=== PATIENT | female | born 1960 | race Caucasian/White ===

== ENCOUNTER 2023-04-24 08:51 | Outpatient (OUT) | payer SELFPAY | END 2023-04-24 08:52 | disposition home or self-care (01) | LOC: LAB 08:54 | PROVIDERS: PCP Family Medicine; Visit Provider Family Medicine | DX: E55.9 Vitamin D deficiency, unspecified (principal) | CPT/HCPCS: 36415; 82306 ==

== ENCOUNTER 2024-04-24 10:56 | Emergency (ER) | payer OTHER, SELFPAY ==
[2024-04-24 11:05] VITALS: BP 143/89; PULSE 96; TEMP 36.6; O2SAT 100; BMI 26.6
--- NOTE | 2024-04-24 11:15 | XR_ITS ---
[address] [address] Patient Name: DAVID MARLEY MRN: [id number] date: 1960 Sex: F Assigned Patient Location: ER Current Patient Location: Accession/Order Number: [id number] Exam Date: 04/24/2024 12:24 Report Date: 04/24/2024 13:55 At the request of: SHEFALI ROMAN Procedure: XR knee RT 4V EXAM: XR knee RT 4V INDICATION: fall. COMPARISON: None. TECHNIQUE: Right knee, 4 views FINDINGS: No acute fracture or dislocation. Mild medial compartment and patellofemoral joint space narrowing with osteophyte formation. No joint effusion. Unremarkable soft tissues. XR/XR knee RT 4V IMPRESSION: 1. No acute osseous abnormality. 2. Mild right knee osteoarthrosis. Electronically authenticated by: ALLAN LOREDO Date: 04/24/2024 13:55
--- NOTE | 2024-04-24 13:54 | ED_ITS ---
HPI HPI - General Adult General Chief complaint: Fall Stated complaint: FALL/[facility] Time Seen by Provider: 04/24/24 11:15 Source: patient Mode of arrival: walk-in Limitations: no limitations History of Present Illness HPI narrative: The patient is coming to the ER 1 week after her initial injury, she had a fall while she was walking and tripped forward. This injury happened, she mentioned that she just felt like her feet got stuck to the floor and she fell forward in her knee and her head. At that time there was no loss of consciousness and she had a contusion to the right side of her head. She also had a contusion to both knees and her right knee over the last few days has been getting her more pain and did not get better. The pain is mostly whenever she is standing her feet and walking and she mentioned that her job requires her a lot of standing up Related Data Home Medications ?Medication ?Instructions ?Recorded ?Confirmed hydrocodone 5 mg-acetaminophen 325 tab 04/24/24 mg tablet lisinopril 10 mg tablet mg 04/24/24 lisinopril 5 mg tablet mg 04/24/24 lorazepam 0.5 mg tablet mg 04/24/24 Previous Rx's ?Medication ?Instructions ?Recorded ibuprofen 600 mg tablet 600 mg PO Q8H PRN pain #20 tabs 04/24/24 Allergies Allergy/AdvReac Type Severity Reaction Status Date / Time fluconazole (From Diflucan) Allergy Hives Verified 04/24/24 11:05 sulfamethoxazole (From Allergy Hives Verified 04/24/24 11:05 Bactrim) trimethoprim (From Bactrim) Allergy Hives Verified 04/24/24 11:05 Opioid HPI Opioid Management Most Recent Opioid Data: No Data to Display Review of Systems ROS Status of ROS 10 or more systems reviewed and unremark able except as noted in history and below PFSH PFSH Social History Little interest or pleasure in doing things: not at all Feeling down, depressed, or hopeless: not at all Exam Narrative Exam Narrative: Nurses notes and vital signs reviewed and patient is not hypoxic. General: Well-appearing and in no apparent distress. Skin: Warm, dry, no pallor noted. No rash. Head: Normocephalic, there is a old bruise just above the right eyebrow and the showing up down to the upper eyelid Neck: Supple, non-tender. Eye: Pupils are equal, round and EOMI. No scleral icterus. Ears, Nose, Mouth, and Throat: TM are clear, no nasal mucosal hypertrophy. Oral mucosa is moist, no posterior oropharynx erythema, uvula is mid-line Cardiovascular: Regular Rate and Rhythm without murmur, gallop or rub. Respiratory: No accessory muscle use or respiratory distress. Lungs are clear to auscultation, no wheezing, rales or rhonchi Chest Wall: no tenderness Back: No midline thoracic or lumbar vertebral tenderness. No CVA tenderness Musculoskeletal: normal ROM, no calf or popliteal tenderness, the patient have a anterior drawer sign is positive on the right knee and the patient have a old contusion with tenderness on palpation of the infrapatellar tendon, the contusion seems healing as it is greenish Left knee examination was benign GI: Abdomen is soft, non-distended. Normal bowel sounds. No masses appreciated. No tenderness to palpation. No rebound, guarding, or rigidity noted. Neurological: A&O x4. No cranial nerve dysfunction observed. Moves all extremities. Sensation intact. Psychiatric: Cooperative and interactive. Normal mood and affect. Constitutional Vital Signs, click to edit/add: Last Vital Signs Temp 97.8 F 04/24/24 11:05 Pulse 96 H 04/24/24 11:05 Resp 18 04/24/24 11:05 BP 143/89 H 04/24/24 11:05 Pulse Ox 100 04/24/24 11:05 O2 Del Method Room Air 04/24/24 11:05 Course Vital Signs Vital signs: Vital Signs Temperature 97.8 F 04/24/24 11:05 Pulse Rate 96 H 04/24/24 11:05 Respiratory Rate 18 04/24/24 11:05 Blood Pressure 143/89 H 04/24/24 11:05 Pulse Oximetry 100 04/24/24 11:05 Oxygen Delivery Method Room Air 04/24/24 11:05 Temperature 97.8 F 04/24/24 11:05 Pulse Rate 96 H 04/24/24 11:05 Respiratory Rate 18 04/24/24 11:05 Blood Pressure 143/89 H 04/24/24 11:05 Pulse Oximetry 100 04/24/24 11:05 Oxygen Delivery Method Room Air 04/24/24 11:05 Medical Decision Making MDM Narrative Medical decision making narrative: The patient x-ray of the right knee showed no acute pathology The patient presented with possible ligament injury sprain that clinical exam showed possible infrapatellar tendon injury as well The patient was placed in a knee immobilizer and she was instructed to rest at least for 2 days elevating her leg Patient referred to the occupational health since this is a work injury with recommendation for orthopedic evaluation in case the patient continues to have pain for an MRI Discharge Plan Discharge Chief Complaint: Fall Clinical Impression: Injury of knee, ligament Qualifiers: Encounter type: initial encounter Laterality: right Qualified Code(s): S89.91XA - Unspecified injury of right lower leg, initial encounter Contusion of knee Qualifiers: Encounter type: initial encounter Laterality: right Qualified Code(s): S80.01XA - Contusion of right knee, initial encounter Patient Disposition: Home, Self-Care Time of Disposition Decision: 11:52 Condition: Good Prescriptions / Home Meds: New ibuprofen 600 mg tablet 600 mg PO Q8H PRN (Reason: pain) Qty: 20 0RF No Action hydrocodone-acetaminophen 5-325 mg tablet lorazepam 0.5 mg tablet lisinopril 10 mg tablet lisinopril 5 mg tablet Print Language: Kinyarwanda Instructions: Contusion in Adults (ED) Referrals: [facility] [Outside] - As soon as possible Physician,Non-Staff, MD [Primary Care Provider] - 1 week Discharge Date/Time: 04/24/24 14:05
== END 2024-04-24 14:05 | disposition home or self-care (01) ==
PROVIDERS: Emergency Provider Emergency Medicine
DX: S80.01XA Contusion of right knee, initial encounter (principal); S89.91XA Unspecified injury of right lower leg, initial encounter; W01.198A Fall on same level from slipping, tripping and stumbling with subsequent striking against other object, initial encounter
CPT/HCPCS: 73564; 99283

== ENCOUNTER 2025-06-08 07:35 | Emergency (ER) | payer SELFPAY ==
--- OUTSIDE RECORDS SUMMARY | 2024-05-03 05:45 | XMS_ITS ---
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 Name Role Phone Chris Singleton Primary Care Provider [phone] REASON FOR VISIT HTN Encounters Encounter Location Date Provider Diagnosis [facility] [address] [place] [address] 05/03/2024 Chris Singleton Plan Of Treatment Next Appt Details Provider Name:Chris mercedes, 06/13/2025 08:30:00 AM, [address] [place], [address], Progress Notes * BERNADETTE MARLEYB:1960 (64 yo F)Acc No.[id number]:05/03/2024 Progress Notes Patient: DAVID WHITE :?FARRAH SalmeronOB:1960???Age:63 Y???Sex: FemaleDate:05/03/2024hone:[phone]:[address] [place], [place] Subjective: * Chief Complaints: * H TN * Electronic signature of Chris Singleton DO, [id number] on 06/08/2025 at 08:05 AM ESTSign off status: Pending * Provider: Stephenie Singleton DO Date: Generated for Printing/Faxing/eTransmitting on:?06/08/2025 08:05 AM EST
--- OUTSIDE RECORDS SUMMARY | 2024-07-27 06:45 | XMS_ITS ---
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[employer] Workers Name Role Phone Chris Singleton Primary Care Provider REASON FOR VISIT CHECKUP Encounters Encounter Location Date Provider Diagnosis [facility] [address] [place] [address] 07/27/2024 Chris Singleton Plan Of Treatment Next Appt Details Provider Name:Chris mercedes, 06/13/2025 08:30:00 AM, [address] [place], [address], Progress Notes * BERNADETTE MARLEYB:1960 (64 yo F)Acc No.[id number]:07/27/2024 Progress Notes Patient: DAVID WHITE :?FARRAH SalmeronOB:1960???Age:63 Y???Sex: FemaleDate:07/27/2024Phone:[phone]:[address] [place], [place] Subjective: * Chief Complaints: * C HECKUP * Electronic signature of Chris Singleton DO, [id number] on 06/08/2025 at 08:05 AM ESTSign off status: Pending * Provider: Stephenie Singleton DO Date: 0 07/27/2024 Generated for Printing/Faxing/eTransmitting on:?06/08/2025 08:05 AM EST
--- OUTSIDE RECORDS SUMMARY | 2024-10-18 05:00 | XMS_ITS ---
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 Name Role Phone Chris Singleton Primary Care Provider [phone] REASON FOR VISIT HTN Encounters Encounter Location Date Provider Diagnosis [facility] [address] [place] [address] 10/18/2024 Chris Singleton Plan Of Treatment Next Appt Details Provider Name:Chris mercedes, 06/13/2025 08:30:00 AM, [address] [place], [address], Progress Notes * KVNG MARLEYTHAOB:1960 (64 yo F)Acc No.[id number]:10/18/2024 Progress Notes Patient: DAVID WHITE :?FARRAH SalmeronOB:1960???Age:64 Y???Sex: FemaleDate:10/18/2024Phone:[phone]:[address] [place], [place] Subjective: * Chief Complaints: * H TN * Electronic signature of Chris Singleton DO, [id number] on 06/08/2025 at 08:05 AM ESTSign off status: Pending * Provider: Stephenie Singleton DO Date: 0 10/18/2024 Generated for Printing/Faxing/eTransmitting on:?06/08/2025 08:05 AM EST
--- OUTSIDE RECORDS SUMMARY | 2025-02-16 09:15 | XMS_ITS ---
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 Name Role Phone Chris Singleton Primary Care Provider REASON FOR VISIT 3MONTH F/U HTN Encounters Encounter Location Date Provider Diagnosis [facility] [address] [place] [address] 02/16/2025 Chris Singleton Plan Of Treatment Next Appt Details Provider Name:Chris mercedes, 06/13/2025 08:30:00 AM, [address] [place], [address], Progress Notes * KEOKVNG TOLLIVERTHAOB:1960 (64 yo F)Acc No.[id number]:02/16/2025 Progress Notes Patient: DAVID WHITE :?FARRAH SalmeronOB:1960???Age:64 Y???Sex: FemaleDate:02/16/2025Phone:[phone]:[address] [facility] Subjective: * Chief Complaints: * 3 MONTH F/U HTN * Electronic signature of Chris Singleton DO, [id number] on 06/08/2025 at 08:05 AM ESTSign off status: Pending * Provider: Stephenie Singleton DO Date: 0 02/16/2025 Generated for Printing/Faxing/eTransmitting on:?06/08/2025 08:05 AM EST
[2025-06-08 07:41] VITALS: PULSE 74; TEMP 36.7; O2SAT 99; BMI 26.6
--- NOTE | 2025-06-08 07:49 | ED.GENADUL1 ---
HPI HPI - General Adult General Chief complaint: Upper Respiratory Infection Stated complaint: exposure to covid - cold like symptoms Time Seen by Provider: 06/08/25 07:46 Source: patient and family Mode of arrival: walk-in Limitations: no limitations History of Present Illness HPI narrative: 64-year-old female presents for a COVID test. She has had cold symptoms for the past 2 days, congestion and runny nose and slight cough. Somebody at work had COVID. She took a home test and it may have been weakly positive but she is not sure. No vomiting or diarrhea. Related Data Home Medications ?Medication ?Instructions ?Recorded ?Confirmed hydrocodone 5 mg-acetaminophen 325 1 tab PO Q8H 04/24/24 06/08/25 mg tablet lorazepam 0.5 mg tablet 0.5 mg PO Q8H 04/24/24 06/08/25 amlodipine 5 mg tablet 5 mg PO DAILY 06/08/25 06/08/25 Allergies Allergy/AdvReac Type Severity Reaction Status Date / Time fluconazole (From Diflucan) Allergy Hives Verified 06/08/25 07:41 sulfamethoxazole (From Allergy Hives Verified 06/08/25 07:41 Bactrim) trimethoprim (From Bactrim) Allergy Hives Verified 06/08/25 07:41 Review of Systems ROS Narrative A ten point review of systems is negative except as noted above. PFSH PFSH Social History Little interest or pleasure in doing things: not at all Feeling down, depressed, or hopeless: not at all Exam Narrative Exam Narrative: Nurses note and vital signs reviewed General:The patient appears well and in no apparent distress.Patient is resting comfortably on cart. Skin:Warm, dry, no pallor noted.There is no rash noted. Head:Normocephalic, atraumatic Eye: Normal conjunctiva, no drainage Ears, Nose, Mouth, and Throat: oral mucosa is moist. Nares patent. Cardiovascular:Regular Rate and Rhythm Respiratory:Patient is in no distress, no accessory muscle use, lungs are clear to auscultation, no wheezing, rales or rhonchi Back:non-tender GI: Soft and nontender Musculoskeletal: No joint swelling Neurological:A&O, normal speech Psychiatric:Cooperative Constitutional Vital Signs, click to edit/add: Last Vital Signs Temp 98.1 F 06/08/25 07:41 Pulse 74 06/08/25 07:41 Resp 16 06/08/25 07:41 BP 140/99 H 06/08/25 07:50 Pulse Ox 99 06/08/25 07:41 O2 Del Method Room Air 06/08/25 07:41 Course Vital Signs Vital signs: Vital Signs Temperature 98.1 F 06/08/25 07:41 Pulse Rate 74 06/08/25 07:41 Respiratory Rate 16 06/08/25 07:41 Pulse Oximetry 99 06/08/25 07:41 Oxygen Delivery Method Room Air 06/08/25 07:41 Temperature 98.1 F 06/08/25 07:41 Pulse Rate 74 06/08/25 07:41 Respiratory Rate 16 06/08/25 07:41 Blood Pressure 140/99 H 06/08/25 07:50 Pulse Oximetry 99 06/08/25 07:41 Oxygen Delivery Method Room Air 06/08/25 07:41 Medical Decision Making MDM Narrative Medical decision making narrative: COVID and influenza test are negative. She was given a work note for today. Treatment diagnosis and follow-up were discussed with the patient. Differential Diagnosis Differential Diagnosis: Viral URI, COVID, influenza Lab Data Lab results reviewed: Yes I reviewed the patient's lab results Labs: Lab Results 06/08/25 Range/Units 07:40 Influenza Type A Ag Negative Influenza Type B Ag Negative SARS-CoV-2 Ag (CV2AG) Negative (NEGATIVE) Discharge Plan Discharge Chief Complaint: Upper Respiratory Infection Clinical Impression: Upper respiratory infection Patient Disposition: Home, Self-Care Time of Disposition Decision: 08:19 Condition: Good Mode of Transportation: Private Vehicle Prescriptions / Home Meds: No Action hydrocodone-acetaminophen 5-325 mg tablet 1 tab PO Q8H lorazepam 0.5 mg tablet 0.5 mg PO Q8H amlodipine 5 mg tablet 5 mg PO DAILY Print Language: Senegalese Instructions: Upper Respiratory Infection (ED) Referrals: Physician,Non-Staff, MD [Physician] - 1 week
[2025-06-08 07:50] VITALS: BP 140/99
--- OUTSIDE RECORDS SUMMARY | 2025-06-08 08:06 | XMS_ITS | Patient Health Record ---
Author Organization [facility] Address [address] [place] [place], [place] [address] Support Name Relationship Address Phone Skinny Avelar Emergency Contact [address] [place] [address] Dana Avelar Guarantor Unknown [phone] Reason For Referral No Information Social History Social History Additional DetailsCategorySocial InfoOptionsDetailsMigrated Social History Migrated Social History Caffeine Use, COMMENTS: 2 diet pops daily, ProblemStatus: Active, , Culture/Language, AttributeTitle: Language barrier, COMMENTS: NO, ProblemStatus: Active, , Current Control Method, AttributeTitle: Oral contraceptives, ProblemStatus: Active, , Current tobacco use, AttributeTitle: Never smoker, ProblemStatus: Active, , Current Work/Study Status, AttributeTitle: Part-time, ProblemStatus: Active, , Currently sexually active, ProblemStatus: Active, , Living Situation, AttributeTitle: Lives with spouse, ProblemStatus: Active, , 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, 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 may need to give sleeping pills . 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 one sone not w her. [place] lived [place]. noo cp n v d c .sob. mild sob on exertion. fatigue and tired most of the time. h/o anemia, Problemmigraine (disorder) (68928162)Migraines (G43.909)Activeconfirmed Comment:migraines worse with menses pt states has tried meds in past, didnt work, using excedrin since ran out of lorcet, doesnt help mri from outside records negative pt given lorcet, pt to use sparingly,, ProblemGynecological examination normal (685502197562086)Well woman exam with routine gynecological exam (Z01.419)Activeconfirmed Comment:no cervical procedures done, last pap 2013 negative, pt currently has no insurance, [facility], now eligable for pap encouraged self breast exams annual mammograms - 09/2014 negative, ProblemGynecological examination normal ([id number])Encounter for routine gynecological examination (Z01.419)ActiveconfirmedProblemEndometrium thickened (869764434)Thickened endometrium (R93.89)Activeconfirmed Comment:pt has history of thickened endometrium, menometrorrhagia, has had multiple endometrial biopsies and hysteroscopy D+C's, pathology all negative. last path 2008 pt currently taking norethindrone 5 mg, 2 tabs daily to control bleeding for 21 days, then off for 7 days to have menses discussed risks of heart attack, blood clot, stroke with high dose, pt aware, has been on years desires to continue. Pt currently declines provera, depo, iud or surgical management as has no insurance. pt states had pelvic ultrasound recently, will obtain records, - in outside records no recent US seen or endo bx seen, previous endo bx neg. Pt to be scheduled for US, will not provide with meds until US obtained - normal endometrial thickness, 5 mm. Pt is to stop norethindrone to see if still needs it, ProblemAdenomyosis of uterus (disorder) (260900576)Adenomyosis (N80.0)Active confirmed Comment:pt has been on narcotics, discussed need to use sparingly, risks of addiction, pt understands, ran out of lorecet, has been using excedrin, which doesnt help pt lost insurance before could have surgical management - pt now has bccp,, Plan Of Treatment No Information Insurance Providers Payer Name Payer Address Payer Phone Subscriber Number Group Number Insured Name Patient Relationship to Insured Coverage Start Date Coverage End Date D20 Resp Sliding Fee Scale [address] [place], [place] [address] Abbi Avelarf - patient is the amtenyc48/[id number]//[facility] Program [address] [place] [phone], Rhonda Self - patient is the [id number]/07/ Medical (General) History Surgical History Surgery Date(Month/Year) Endometrial biopsy, COMMENTS : Negative. For thickened endometrium, ProblemStatus: Active, Fistula Repair , ProblemStatus: Active,Hysteroscopy, COMMENTS: For thickened endometrium, ProblemStatus: Active,D&C, ProblemStatus: Active,Breast Biopsy - Right, COMMENTS: Negative, ProblemStatus: Active,1999-07-14
--- OUTSIDE RECORDS SUMMARY | 2025-06-08 08:06 | XMS_ITS | Clinical Summary ---
Author Organization [facility] Address [address] [place] [address] Care Team Providers Care Offc Spec Name Role Phone Unavailable Primary Care Provider Unavailabl e Social History Tobacco UseTypesPacks/DayYears UsedDateSmoking Tobacco: Never Assessed CommentsUnknownSex and Gender InformationValueDate RecordedSex Assigned at Not on fileLegal KoiUgflgb75/25/2024 11:02 AM EDTGender IdentityNot on file Sexual OrientationNot on file Plan of Treatment Not on file
--- OUTSIDE RECORDS SUMMARY | 2025-06-08 08:06 | XMS_ITS | CCD ---
Author Organization [facility] Care Team Providers Care Wallpaper Inspector And Shipper Name Role Phone Eugene Joshua Admitting Unavailable Eugene Joshua Attending Unavailable Eugene Joshua Referring Unavailable VICKI ROUSSEAU~[phone] UNKNOWN Primary Care Unavailable Vicki Rousseau Unavailable REQUEST, NONE LISTED Admitting Unavaila ble REQUEST, NONE LISTED Attending Unavaila ble ONELIA, DR VICKI Herbert Primary Care Unavailable REQUEST, NONE LISTED Consulting Unavaila ble REQUEST, NONE LISTED Admitting Unavaila ble REQUEST, NONE LISTED Attending Unavaila ble ONELIA, DR VICKI Herbert Primary Care Unavailable REQUEST, NONE LISTED Consulting Unavaila ble Zina Soto Unavailable DO Chris Singleton Attending Provider Chris Singleton Attending Unavailable Chris Singleton Admitting Unavailable Allergies Allergy ClassificationReported Allergen(s)Allergy TypeDate of OnsetReaction(s) Facility (20 sources)Fluconazole; Translations: [fluconazole]Drug Dbkjvnj88-49-3930 Unknown, [facility] Repository (3 sources)Sulfamethoxazole; Translations: [sulfamethoxazole]Drug Allergy 47[place]58[place]05[place] Repository (1 source)Sulfonamides (Antibiotic); Translations: [sulfa drugs]Propensity to adverse reactions (disorder)[facility] Repository (20 sources)Sulfamethoxazole / TrimethoprimDrug AllergyUnkSolvvy Inc[employer] Other (1 source)FluconazoleDrug [facility]ergySum[facility] (1 source)Sulfamethoxazole / TrimethoprimDrug AllergySumma Health [facility] Repository (12 sources)Amoxicillin / ClavulanateDrug Iwdbczu55-84-0406NomyoxyMtdcuPixelle Other (10 sources)patient allergy list reviewed by nurse or physiciaPropensity to adverse iomklljrt69-58-4741Jycffiv:DoneNouniversity of missouri health care [employer] Other (10 sources)Allergies ReconciledPropensity to adverse reactionsUnkSaint Joseph Hospital of Kirkwood [employer] Other (2 sources)Amoxicillin; Translations: [amoxicillin]Drug Ezraulm21-20-6502BjxkqT[facility] (2 sources)Clavulanate; Translations: [clavulanic acid]Drug Qazflwd74-85-4103 [facility] (2 sources)Trimethoprim; Translations: [trimethoprim]Drug Yldffby82-48-8216TfcxbTwin City Hospital Medications Current Medications MedicationDrug Class(es)DatesSig (Normalized)Sig (Original)LORazepam 0.5 mg oral tablet (20 sources)BenzodiazepineStart: 09-16-2023 End: 99-72-3194tlec 1 tablet by mouth three times daily as neededLorazepam Active 0.5 MG PO Three times daily October 28, 2023 1:44pm FreeTextSi tab Orally tid prn; Note: Source Status: Taking; Refills: 0; Provider: Onelia Cohen EStart: 24-29-4431obbc 1 tablet by mouth three times daily as needed LORazepam 0.5 MG 1 tab Orally tid prn for 30 days Jun, ActiveStart: 92-49-5243mene 1 tablet by mouth three times daily as neededLORazepam 0.5 MG 1 tab Orally tid prn for 30 days Oct, Activetake 1 tablet by mouth every twenty-four hoursLORazepam 0.5 MG 1 tablet at bedtime as needed Orally Once a day ActivemethylPREDNISolone 4 mg oral tablet (2 sources)CorticosteroidStart: 97-31-2656vrfrbfYWJIORKoixwh 4 MG as directed Orally daily for 6 days Jun, Activenorethindrone acetate 5 mg oral tablet (20 sources)take 1 tablet by mouth twice dailyNorethindrone Acetate 5 MG take 1 tablet by mouth twice a day for 30 Activetake 1 tablet by mouth every twenty- four hoursondansetron 4 mg disintegrating oral tablet (1 source)Serotonin-3 Receptor AntagonistStart: 44-87-7856zojl 4 mg by mouth every eight hoursOndansetron Active 4 MG PO Every 8 hours October 27, 2023 12:00amZOLMitriptan 5 mg oral tablet (1 source)Serotonin-1b and Serotonin-1d Receptor AgonistStart: 27-80-2666objh 2 tablets by mouth every twenty-four hoursZolmitriptan (Zomig) 5 mg tablet Active 5 MG PO Every 2 hours October 31, 2023 12:00am do not exceed 2 doses per 24 hrs Completed/Discontinued Medications MedicationDrug Class(es)DatesSig (Normalized)Sig (Original)acetaminophen 325 mg / HYDROcodone bitartrate 5 mg oral tablet (20 sources)Opioid AgonistStart: 08-27-2023 End: 09-99-8681smha 1 tablet by mouth every six hours as neededHydrocodone- Acetaminophen Discontinued 1 TAB PO Every 6 hours 120 30 2023 October 31, 2023 9:28am FreeTextSi tablet Orally every 6 hrs, as needed; Note: Source Status: Refill; Refills: 0; Qty: 120 Tablet; Provider: Onelia Herbert Start: 82-10-7238soyv 1 tablet by mouth every six hours as neededHYDROcodone- Acetaminophen 5-325 MG 1 tablet Orally every 6 hrs, as needed for 30 days Jul, ActiveStart: 83-55-2497nnfc 1 tablet by mouth every six hours as neededHYDROcodone-Acetaminophen 5-325 MG 1 tablet Orally every 6 hrs, as needed for 30 days Jun, ActiveStart: 46-52-2703dpzk 1 tablet by mouth every six hours as neededHYDROcodone-Acetaminophen 5-325 MG 1 tablet Orally every 6 hrs, as needed for 30 days Jun, ActiveStart: 16-87-7001bygc 1 tablet by mouth every six hours as neededHYDROcodone-Acetaminophen 5-325 MG 1 tablet Orally every 6 hrs, as needed for 30 days May, ActiveStart: 18-57-0760ymnr 1 tablet by mouth every six hours as neededHYDROcodone-Acetaminophen 5-325 MG 1 tablet Orally every 6 hrs, as needed for 30 days May, ActiveStart: 46-74-6962jicu 1 tablet by mouth every six hours as neededHYDROcodone- Acetaminophen 5-325 MG 1 tablet Orally every 6 hrs, as needed for 30 days May, ActiveStart: 03-91-5641vsmq 1 tablet by mouth every six hours as neededHYDROcodone-Acetaminophen 5-325 MG 1 tablet Orally every 6 hrs, as needed for 30 days Apr, ActiveStart: 39-22-3516dpda 1 tablet by mouth every six hours as neededHYDROcodone-Acetaminophen 5-325 MG 1 tablet Orally every 6 hrs, as needed for 30 days p/u 12/25/22, start 12/26/22 Mar, ActiveStart: 39-05-5836kxui 1 tablet by mouth every six hours as neededHYDROcodone- Acetaminophen 5-325 MG 1 tablet Orally every 6 hrs, as needed for 30 days p/u 12/25/22, start 12/26/22 Feb, ActiveStart: 44-15-6554kebr 1 tablet by mouth every six hours as neededHYDROcodone-Acetaminophen 5-325 MG 1 tablet Orally every 6 hrs, as needed for 30 days p/u 12/25/22, start 12/26/22 Jan, ActiveStart: 60-54-9606hteu 1 tablet by mouth every six hours as needed HYDROcodone-Acetaminophen 5-325 MG 1 tablet Orally every 6 hrs, as needed for 30 days p/u 12/25/22, start 12/26/22 Dec, ActiveStart: 24-29-4647Rpswq: 87-38-8860almg 1 tablet by mouth every six hours as neededHYDROcodone- Acetaminophen 5-325 MG 1 tablet Orally every 6 hrs, as needed for 30 days Sep, ActiveStart: 49-75-4657ljhz 1 tablet by mouth every six hours as neededHYDROcodone-Acetaminophen 5-325 MG 1 tablet Orally every 6 hrs, as needed for 30 days Aug, Activecholecalciferol 1.25 mg oral capsule (19 sources)Vitamin DStart: 09-16-2023 End: 92-94-7176tlvf 1 capsule by mouth every weekCholecalciferol (Vitamin D3) Discontinued 1 CAP PO every week September 16, 2023 1:00am October 27, 2023 1:46pm FreeTextSi capsule Orally weekly; Note: Source Status: Taking; Refills: 2; Provider: Onelia Cordoba 1 capsule by mouth every weekCholecalciferol 1.25 MG (31997 UT) 1 capsule Orally weekly for 30 days Active Problems Active Problems Problem ClassificationProblemDateDocumented DateEpisodic/ChronicAcute bronchitis (12 sources)Acute bronchitis; Translations: [Acute bronchitis due to other specified organisms]EpisodicAnxiety disorders (15 sources)Anxiety disorder; Translations: [Anxiety disorder, unspecified] Onset: [id number] and other anemia (1 source)Deficiency and other anemia; Translations: [Unspecified iron deficiency anemia]Onset: 94-22-6364Antztjkvqayte symptoms and ill-defined conditions (20 sources)Finding of frequency of urination; Translations: [Frequency of micturition]Onset: 01-38-4963LhgbsqfhZtqzavie; including migraine (20 sources)Migraine with aura; Translations: [Migraine with aura, not intractable, with status migrainosus]Onset: 75-34-5684TdsyxrfFugiaoprnqet; infection of eye (except that caused by tuberculosis or sexually transmitteddisease) (12 sources)Acute atopic conjunctivitis; Translations: [Acute atopic conjunctivitis, unspecified eye]EpisodicMalaise and fatigue (20 sources)Fatigue; Translations: [Chronic fatigue, unspecified]Onset: 22-06-4982GkafpgqAvaesfkkiai deficiencies (13 sources)Vitamin D deficiency; Translations: [Vitamin D deficiency, unspecified]Onset: 97-94-2839FphrohhMxigb circulatory disease (12 sources)Elevated blood-pressure reading without diagnosis of hypertension; Translations: [Elevated blood-pressure reading, without diagnosis of hypertension]EpisodicOther diseases of bladder and urethra (11 sources)Low compliance bladder; 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]ChronicOther diseases of bladder and urethra (1 source)Other neuromuscular dysfunction of bladder; 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]ChronicOther female genital disorders (20 sources)Abnormal uterine bleeding; Translations: [Abnormal uterine and vaginal bleeding, unspecified]ChronicOther female genital disorders (1 source)Abnormal uterine and vaginal bleeding, unspecifiedChronicOther female genital disorders (11 sources)Abnormal vaginal bleeding; Translations: [Other specified abnormal uterine and vaginal bleeding]Onset: 89-43-0725UmpgdrpQndrm female genital disorders (1 source)Other specified abnormal uterine and vaginal bleeding; Translations: [Other specified abnormal uterine and vaginal bleeding]Onset: 97-88-7562Brsilyd Other nutritional; endocrine; and metabolic disorders (12 sources)Body mass index 30+ - obesity; Translations: [Body mass index (BMI) 30.0-30.9, adult]ChronicOther screening for suspected conditions (not mental disorders or infectious disease) (1 source)Encounter for screening mammogram for malignant neoplasm of breast; Translations: [Encounter for screening mammogram for malignant neoplasm of breast]Episodic Past or Other Problems Problem ClassificationProblemDateDocumented DateEpisodic/ChronicAllergic reactions (13 sources)Contact dermatitis; Translations: [Unspecified contact dermatitis due to other agents]Onset: 22-68-7577SkihvbzmSpkfztkyla and other anemia (11 sources)Iron deficiency anemia; Translations: [Unspecified iron deficiency anemia]Onset: 23-33-4004KhwkhwdnLyuoqeozjs and other anemia (11 sources)Anemia; Translations: [Anemia, unspecified]Onset: 68-18-2692Sftbcdvp Deficiency and other anemia (1 source)Anemia, unspecified; Translations: [Anemia, unspecified]Onset: 35-73-2257CxovmtmmBflaaoy and fatigue (12 sources)Malaise and fatigue; Translations: [Other malaise and fatigue]Onset: 21-16-3321SaernfstCtvqz nutritional; endocrine; and metabolic disorders (11 sources)Abnormal weight loss; Translations: [Abnormal weight loss]Onset: 12-41-1436DxjxzalaIzbla nutritional; endocrine; and metabolic disorders (1 source)Abnormal weight loss; Translations: [Abnormal weight loss]Onset: 20-13-6038TedakhceLzywy skin disorders (12 sources)Vesicular eczema of hands and/or feet; Translations: [Dyshidrosis] Onset: 68-89-4143BlmijhlnKhjcx upper respiratory infections (12 sources)Acute maxillary sinusitis; Translations: [Acute recurrent maxillary sinusitis]Onset: 54-15-0032QlzzpfpiGsftnecr codes; unclassified (12 sources)C/O - a back symptom; Translations: [Other symptoms referable to back]Onset: 21-39-3683HjgznhikYdusetsjjez; intervertebral disc disorders; other back problems (12 sources)Low back pain; Translations: [Low back pain, unspecified]Onset: 84-69-8227LmfyszsyByxdmiu tract infections (12 sources)Urinary tract infectious disease; Translations: [Urinary tract infection, site not specified]Onset: 13-39-3445Qcmkwezq Results Test NameValueInterpretationReference RangeFacilityAlanine aminotransferase [Enzymatic activity/volume] in Serum or PlasmaOrdered By: Chris Singleton on 63-09-7623ZIF [Catalytic activity/Vol]11 U/LNormal7-52Summa HealthComment on above:Order Comment: Reason for Exam Chronic fatiguePerformed By: #### TSH3 wRFLX, CMP, CBC #### [facility] [address] [place] [address] USAAlbumin [Mass/volume] in Serum or Plasma by Bromocresol green (BCG) dye binding methoOrdered By: Chris Singleton on 81-65-6846Rkfuxes BCG dye [Mass/Vol]4.5 g/dL3.5-5.7FBluffton HospitalAlkaline phosphatase [Enzymatic activity/volume] in Serum or PlasmaOrdered By: Chris Singleton on 31-05-8643SEN [Catalytic activity/Vol]54 U/ROddpjf80-790TkjndhzpkSumma HealthComment on above:Order Comment: Reason for Exam Chronic fatiguePerformed By: #### TSH3 wRFLX, CMP, CBC #### [facility] [address] [place] [address] USAAspartate aminotransferase [Enzymatic activity/volume] in Serum or PlasmaOrdered By: Chris Singleton on 30-34-5321YRM [Catalytic activity/Vol]22 U/PHxzstk44-56KdclqdbhkSumma HealthComment on above: Order Comment: Reason for Exam Chronic fatiguePerformed By: #### TSH3 wRFLX, CMP, CBC #### [facility] [address] [place] [id number] USAAutomated basophil %Ordered By: Chris Singleton on 59-75-4490Rngcwyxys/100 WBC (Bld)0.9 %Normal.[facility] Comment on above:Order Comment: Reason for Exam Chronic fatiguePerformed By: #### TSH3 wRFLX, CMP, CBC #### [facility] [address] [place] [address] USAAutomated basophil countOrdered By: Chris Singleton on 20-18-4061Byosvfadz (Bld) [#/Vol]0.1 10*3/uLNormal0.0-0.2FBluffton HospitalComment on above:Order Comment: Reason for Exam Chronic fatigue Result Comment: PERFORMED BY: [place] [address] PATHOLOGIST ANALYTICAL CHEMISTRY TEACHER JUAN ALARCON M.D.Performed By: #### TSH3 wRFLX, CMP, CBC #### [place] [address] USAAutomated blood monocyte countOrdered By: Chris Singleton on 49-38-8598Qbjeeluwj (Bld) [#/Vol]0.7 10*3/uLNormal0.0-0.8Summa HealthComment on above:Order Comment: Reason for Exam Chronic fatigue Performed By: #### TSH3 wRFLX, CMP, CBC #### [place] [address] USAAutomated eosinophil %Ordered By: Chris Singleton on 65-05-5461Yqrztibclrv/100 WBC (Bld)0.8 %Normal.[facility] Comment on above:Order Comment: Reason for Exam Chronic fatiguePerformed By: #### TSH3 wRFLX, CMP, CBC #### [facility] [address] [place] [address] USAAutomated eosinophil countOrdered By: Chris Singleton on 49-66-7986Nokhwrarwae (Bld) [#/Vol]0.1 10*3/uLNormal0.0-0.45Summa HealthComment on above:Order Comment: Reason for Exam Chronic fatigue Performed By: #### TSH3 wRFLX, CMP, CBC #### [facility] [address] [place] [address] USAAutomated monocyte %Ordered By: Chris Singleton on 38-13-0487Vlhehezli/100 WBC (Bld)9.5 %Normal.[facility] Comment on above:Order Comment: Reason for Exam Chronic fatiguePerformed By: #### TSH3 wRFLX, CMP, CBC #### [facility] [address] [place] [id number] USAAutomated neutrophil %Ordered By: Chris Singleton on 87-24-1130Kayswvbgjxe/100 WBC (Bld)60.0 %Normal.Summa HealthComment on above:Order Comment: Reason for Exam Chronic fatiguePerformed By: #### TSH3 wRFLX, CMP, CBC #### [facility] [address] [place] [address] USABilirubin.total [Mass/volume] in Serum or PlasmaOrdered By: Chris Singleton on 69-64-9200Yzgtlcedq [Mass/Vol]0.5 mg/dLNormal0.3-1.0 Summa HealthComment on above:Order Comment: Reason for Exam Chronic fatiguePerformed By: #### TSH3 wRFLX, CMP, CBC #### [facility] [address] [place] [address] USACalcium [Mass/volume] in Serum or PlasmaOrdered By: Chris Singleton on 04-88-9440Cqhiagk [Mass/Vol]9.7 mg/dLNormal8.6-10.3FBluffton HospitalComment on above:Order Comment: Reason for Exam Chronic fatiguePerformed By: #### TSH3 wRFLX, CMP, CBC #### [facility] [address] [place] [id number] USACarbon dioxide, total [Moles/volume] in Serum or Plasma Ordered By: Chris Singleton on 59-59-5235DF2 [Moles/Vol]24.8 mmol/LNormal 21.0-31.0Summa HealthComment on above:Order Comment: Reason for Exam Chronic fatiguePerformed By: #### TSH3 wRFLX, CMP, CBC #### [facility] [address] [place] [id number] USAChloride [Moles/volume] in Serum or PlasmaOrdered By: Chris Singleton on 48-95-8684Zagdrrgy [Moles/Vol]107 mmol/VUzttcw80-611TkjykaaxbSumma HealthComment on above:Order Comment: Reason for Exam Chronic fatiguePerformed By: #### TSH3 wRFLX, CMP, CBC #### [facility] [address] [place] [address] USAComplete Blood Count Auto Diffon 56-99-8541Dgwo Corpuscular HGB Conc33.5 g/qAGpawrg23.0-35.0The Pending Sale To [facility] Physician GroupComment on above:Order Comment: Reason for Exam Chronic fatiguePerformed By: #### TSH3 wRFLX, CMP, CBC #### [facility] [address] [place] [address] USANRBC%0.0 /100{WBC}Normal0-0.5The Pending Sale To [facility] Comment on above:Order Comment: Reason for Exam Chronic fatiguePerformed By: #### TSH3 wRFLX, CMP, CBC #### [place] [address] USAComprehensive Metabolic Panelon 38-71-6084Dzylazp [Mass/Vol]4.5 g/dLNormal3.5-5.7The Pending Sale To [facility] Physician GroupComment on above: Order Comment: Reason for Exam Chronic fatiguePerformed By: #### TSH3 wRFLX, CMP, CBC #### [place] [address] USAGFR/1.73 sq M.predicted MDRD (S/P/Bld) [Vol rate/Area] 50.176 mL/min/{1.73_m2}NormalThe Pending Sale To [facility] Physician GroupComment on above:Order Comment: Reason for Exam Chronic fatiguePerformed By: #### TSH3 wRFLX, CMP, CBC #### [place] [address] USACreatinine [Mass/volume] in Serum or PlasmaOrdered By: Chris Singleton on 20-17-3613Xjxspoahiv [Mass/Vol]1.22 mg/dLHigh0.60-1.20 Summa HealthComment on above:Order Comment: Reason for Exam Chronic fatiguePerformed By: #### TSH3 wRFLX, CMP, CBC #### [facility] [address] [place] [address] USAErythrocyte distribution width [Ratio] by Automated count Ordered By: Chris Singleton on 95-39-6481Nigeocuzeew distribution width (RBC) [Ratio]14.2 %Yoryvo88.9-15.3FBluffton HospitalComment on above: Order Comment: Reason for Exam Chronic fatiguePerformed By: #### TSH3 wRFLX, CMP, CBC #### [facility] [address] [place] [id number] USAErythrocytes [#/volume] in Blood by Automated countOrdered By: Chris Singleton on 86-05-8565PIM (Bld) [#/Vol]4.86 10*6/uLNormal3.60-5.00 [facility] HealthCompine rest [facility] services on above:Order Comment: Reason for Exam Chronic fatiguePerformed By: #### TSH3 wRFLX, CMP, CBC #### [facility] [address] [place] [id number] USAGlucose [Mass/volume] in Serum or PlasmaOrdered By: Chris Singleton on 65-25-5715Ngldumm [Mass/Vol]85 mg/iCZhamew68-458WuhtfaizcSumma HealthComment on above:ADA recommended reference rangeRandom Glucose Reference Range is dependent on time and content of last meal. Glucose of more than 200 mg/dL in a nonstressed, ambulatory subject supports the diagnosisof Diabetes Mellitus.Order Comment: Reason for Exam Chronic fatigueResult Comment: Random Glucose Reference Range is dependent on time and content of last meal. Glucose of more than 200 mg/dL in a nonstressed, ambulatory subject supports the diagnosis of Diabetes Mellitus. ADA recommended reference rangePerformed By: #### TSH3 wRFLX, CMP, CBC #### [facility] [address] [place] [id number] USAHematocrit [Volume Fraction] of Blood by Automated count Ordered By: Chris Singleton on 67-65-5568Wpeqdtehyc (Bld) [Volume fraction]42.6 % Peobeu72.0-46.4FBluffton HospitalComment on above:Order Comment: Reason for Exam Chronic fatiguePerformed By: #### TSH3 wRFLX, CMP, CBC #### [facility] [address] [place] [address] USAHemoglobin [Mass/volume] in BloodOrdered By: Chris Singleton on 85-85-0373Njwtwqdpfy (Bld) [Mass/Vol]14.3 g/xKArsqwx30.8-15.4 Summa HealthComment on above:Order Comment: Reason for Exam Chronic fatiguePerformed By: #### TSH3 wRFLX, CMP, CBC #### [facility] [address] [place] [address] USALeukocytes [#/volume] corrected for nucleated erythrocytes in Blood by Automated counOrdered By: Chris Singleton on 92-33-7636VLB corrected for nucl RBC Auto (Bld) [#/Vol]7.5 10*3/uL3.8-11.6FBluffton HospitalLeukocytes [#/volume] in Blood by Automated countOrdered By: Chris Singleton on 17-24-3224WJG (Bld) [#/Vol]7.5 10*3/uLNormal3.8-11.6FBluffton HospitalComment on above:Order Comment: Reason for Exam Chronic fatiguePerformed By: #### TSH3 wRFLX, CMP, CBC #### [facility] [address] [place] [address] USALymphocytes [#/volume] in Blood by Automated countOrdered By: Chris Singleton on 42-30-8877Nwfzhcsqhov (Bld) [#/Vol]2.2 10*3/uLNormal 1.00-4.8Summa HealthComment on above:Order Comment: Reason for Exam Chronic fatiguePerformed By: #### TSH3 wRFLX, CMP, CBC #### [facility] [address] [place] [address] USALymphocytes/100 leukocytes in Blood by Automated count Ordered By: Chris Singleton on 75-87-3442Cfetkalnehb/100 WBC (Bld)28.8 %Normal. [facility] CenterComment on above:Order Comment: Reason for Exam Chronic fatiguePerformed By: #### TSH3 wRFLX, CMP, CBC #### [facility] [address] [Entitic mass] by Automated countOrdered By: Chris Singleton on 36-22-1591XEE (RBC) [Entitic mass]29.4 kkOguzji57.7-34.3FBluffton HospitalComment on above:Order Comment: Reason for Exam Chronic fatiguePerformed By: #### TSH3 wRFLX, CMP, CBC #### [facility] [address] Auto (RBC) [Mass/Vol]Ordered By: Chris Singleton on 04-35-9398ZUIB (RBC) [Mass/Vol]33.5 g/dL32.0-35.0Summa HealthMCV [Entitic volume] by Automated countOrdered By: Chris Singleton on 67-75-2032KXU (RBC) [Entitic vol]87.7 aECemlnc74-686TdpftsxojSumma HealthComment on above:Order Comment: Reason for Exam Chronic fatiguePerformed By: #### TSH3 wRFLX, CMP, CBC #### [facility] [address] [place] [address] USANeutrophils [#/volume] in Blood by Automated countOrdered By: Chris Singleton on 94-09-1542Gnvnlqxrxqv (Bld) [#/Vol]4.5 10*3/uLNormal 1.8-7.7FBluffton HospitalComment on above:Order Comment: Reason for Exam Chronic fatiguePerformed By: #### TSH3 wRFLX, CMP, CBC #### [facility] [address] [place] [address] USANo Panel InformationOrdered By: Chris Singleton on 61-97-5821Eszgxpbrt GFR (CKD-EPI)50.176 mL/MinSumma Health Pharmacy Creatinine Clearance (ChemN/[facility]ula General HospitalNucleated erythrocytes [Presence] in Blood by Automated countOrdered By: Chris Singleton on 57-29-7908Jddajsroa RBC Auto Ql (Bld)0.0 /100{WBC}0-0.5FBluffton HospitalPlatelet mean volume [Entitic volume] in Blood by Automated count Ordered By: Chris Singleton on 19-88-5210Vwfsxuta mean volume (Bld) [Entitic vol] 7.8 fLNormal6.3-10.7FBluffton HospitalComment on above:Order Comment: Reason for Exam Chronic fatiguePerformed By: #### TSH3 wRFLX, CMP, CBC #### [facility] [address] [place] [address] USAPlatelets [#/volume] in Blood by Automated countOrdered By: Chris Singleton on 03-22-6108Udedrgzht (Bld) [#/Vol]428 10*3/qOApaiyd966-959 Summa HealthComment on above:Order Comment: Reason for Exam Chronic fatiguePerformed By: #### TSH3 wRFLX, CMP, CBC #### [place] [address] USAPotassium [Moles/volume] in Serum or PlasmaOrdered By: Chris Singleton on 25-24-6427Zdbglblsv [Moles/Vol]4.0 mmol/LNormal3.5-5.1 [facility]ma HealthComment on above:Order Comment: Reason for Exam Chronic fatiguePerformed By: #### TSH3 wRFLX, CMP, CBC #### [place] [address] USAProtein [Mass/volume] in Serum or PlasmaOrdered By: Chris Singleton on 88-47-3843Nwszczi [Mass/Vol]7.0 g/dLNormal6.4-8.9Summa HealthComment on above:Order Comment: Reason for Exam Chronic fatigue Performed By: #### TSH3 wRFLX, CMP, CBC #### [place] [address] USASerum globulin measurement by calculation (mass/volume) Ordered By: Chris Singleton on 47-62-2358Trxbvssm (S) [Mass/Vol]2.5 g/dLNormal Summa HealthComment on above:Order Comment: Reason for Exam Chronic fatiguePerformed By: #### TSH3 wRFLX, CMP, CBC #### [facility] [address] [place] [address] USASerum or plasma albumin/globulin mass ratioOrdered By: Chris Singleton on 57-62-1071Rrefzgg/Globulin [Mass ratio]1.8 {ratio}Normal Summa HealthComment on above:Order Comment: Reason for Exam Chronic fatiguePerformed By: #### TSH3 wRFLX, CMP, CBC #### [facility] [address] [place] [address] USASerum or plasma anion gap determinationOrdered By: Chris Singleton on 08-46-4856Bdrbm gap [Moles/Vol]11.2 mmol/LNormal6.0-15.0Summa HealthComment on above:Order Comment: Reason for Exam Chronic fatiguePerformed By: #### TSH3 wRFLX, CMP, CBC #### [facility] [address] [place] [address] USASodium [Moles/volume] in Serum or PlasmaOrdered By: Chris Singleton on 44-74-3011Fvmhhg [Moles/Vol]139 mmol/XOkplzj013-938CgttghtxpSumma HealthComment on above:Order Comment: Reason for Exam Chronic fatiguePerformed By: #### TSH3 wRFLX, CMP, CBC #### [facility] [address] [place] [address] USAThyroid Stim Hormone w/Rflxon 48-89-0369Aawbhnn Stim Hormone w/Rflx1.48 u[iU]/mLNormal0.45-5.33The Pending Sale To [facility] Physician GroupComment on above:Order Comment: Reason for Exam Chronic fatigueResult Comment: PERFORMED BY: [place] [address] PATHOLOGIST ANALYTICAL CHEMISTRY TEACHER JUAN ALARCON M.D.Performed By: #### TSH3 wRFLX, CMP, CBC #### [facility] [address] [place], [place] [id number] USAThyrotropin [Units/volume] in Serum or PlasmaOrdered By: Chris Singleton on 02-33-6956SAY Qn1.48 m[IU]/L0.45-5.33Summa HealthUrea nitrogen [Mass/volume] in Serum or PlasmaOrdered By: Chris Mani on 21-41-9047Gtid nitrogen [Mass/Vol]14 mg/dLNormal7-25Summa HealthComment on above:Order Comment: Reason for Exam Chronic fatiguePerformed By: #### TSH3 wRFLX, CMP, CBC #### [facility] [address]CBC AUTO DIFFon 85-10-6535BFMX #0.0 103/ulNormal0.0-0.1The [facility] PrebleComment on above:Performed By: #### DATCBC #### [facility] [address] [address] [address] Mariana StaffordBasophils/100 WBC (Bld)0.7 %Normal0.2-2.0[facility] Comment on above:Performed By: #### DATCBC #### [facility] [address] [address] [address] Mariana Gloria #0.1 103/ulNormal0.0-0.7The [facility] PrebleComment on above: Performed By: #### DATCBC #### [facility] [address] [address] [address] Mariana Felipeosinophils/100 WBC (Bld)1.4 %Normal0.9-7.0[facility] Comment on above:Performed By: #### DATCBC #### [facility] [address] [address] [address] Mariana Feliperythrocyte distribution width (RBC) [Ratio]13.4 %Jycpwe65.0-15.0 [facility] CampusComment on above:Performed By: #### DATCBC #### [facility] [address] [address] [address] Mariana StaffordHematocrit (Bld) [Volume fraction]44.0 %Kvfhke68.0-48.0The [facility] PrebleComment on above:Performed By: #### DATCBC #### [facility] [address] [place] [address] Dr. Mariana StaffordHemoglobin (Bld) [Mass/Vol]14.4 g/aISmhefm13.0-16.0The [facility] PrebleComment on above:Performed By: #### DATCBC #### [facility] [address] [place] [address] Dr. Mariana Reed #0.01 10e3/ulNormal0.00-0.03The Vining HospitalComment on above:Performed By: #### DATCBC #### [facility] [address] [place] [address] Dr. Mariana Reed %0.2 %Normal0.0-0.5The [facility] PrebleComment on above: Performed By: #### DATCBC #### [facility] [address] [place] [address] Dr. Mariana Salinas #1.8 103/ulNormal1.2-3.8The [facility] PrebleComment on above:Performed By: #### DATCBC #### [facility] [address] [place] [address] Dr. Mariana Dennisonhocytes/100 WBC (Bld)32.1 %Laynsx92.5-60.0The [facility] PrebleComment on above:Performed By: #### DATCBC #### [facility] [address] [place] [address] Dr. Mariana Rubalcava (RBC) [Entitic mass]28.7 thRzoytu56.7-34.0The [facility] PrebleComment on above:Performed By: #### DATCBC #### [facility] [address] [place] [address] Dr. Mariana Mcrae (RBC) [Mass/Vol]32.7 g/eIKgetrf28.9-35.2The [facility]ining HospitalComment on above:Performed By: #### DATCBC #### [facility] [address] [place] [address] Dr. Yilan ChangMCV (RBC) [Entitic vol]87.6 tHVglixr42.0-99.0The [facility] PrebleComment on above:Performed By: #### DATCBC #### [facility] [address] [place] [address] Dr. Mariana Duran #0.6 103/ulNormal0.3-0.8The [facility] PrebleComment on above:Performed By: #### DATCBC #### [facility] [address] [place] [address] Dr. Mariana Gaticaocytes/100 WBC (Bld)10.2 %Normal1.7-12.0The [facility] Comment on above:Performed By: #### DATCBC #### [facility] [address] [place] [address] Dr. Mariana Gifford #3.1 103/ulNormal1.4-6.5The [facility] PrebleComment on above:Performed By: #### DATCBC #### [facility] [address] [place] [address] Dr. Mariana StaffordNeutrophils/100 WBC (Bld)55.4 %Ubbmsu42.0-75.0The [facility] PrebleComment on above:Performed By: #### DATCBC #### [facility] [address] [place] [address] Dr. Mariana Wattlet mean volume (Bld) [Entitic vol]9.0 fLCritically low 9.5-13.5The [facility] PrebleComment on above:Performed By: #### DATCBC #### [facility] [address] [place] [address] Dr. Mariana StaffordPLT305 103/zuAapiii854-497Mcv [facility] PrebleComment on above: Performed By: #### DATCBC #### [facility] [address] [place] [address] Dr. Mariana StaffordRBC5.02 106/ulNormal4.20-5.40The [facility] PrebleComment on above:Performed By: #### DATCBC #### [facility] [address] [place] [address] Dr. Mariana StaffordWBC5.6 103/ulNormal4.0-11.0The [facility] PrebleComment on above: Performed By: #### DATCBC #### [facility] [address] [place] [address] Dr. Mariana Rosen - VITAMIN Don 35-40-0793IXT D 25-OH11.2 ng/mLNormalThe [facility] PrebleComment on above:Performed By: #### FAITH DATBMP #### [facility] [address] [place] [address] Dr. Mariana Hernandez [facility] John Medical CenterComment on above: Result Comment: <20 ng/mL Vit D deficient 20 - <30 ng/mL Vit D insufficient 30 - 100 ng/mL Vit D sufficient >100 ng/mL Potential ToxicityPerformed By: #### ZANE CUEVASP #### [facility] [address] [place] [address] Dr. Mariana Rosen- BMP WITH LIPIDon 30-49-0538Esvpi gap [Moles/Vol]10.7 mmol/L NormalSumma Health Akron CampusComment on above:Performed By: #### FAITH DATBMP #### [facility] [address] [place] [address] Dr. Mariana StaffordCalcium [Mass/Vol]9.1 mg/dLNormal8.5-10.1[facility] Comment on above:Performed By: #### FAITH DATBMP #### [facility] [address] [place] [address] Dr. Mariana StaffordChloride [Moles/Vol]105 mmol/MOfllqu80-401Dec [facility] Comment on above:Performed By: #### FAITH DATBMP #### [facility] [address] [place] [address] Dr. Mariana StaffordCholesterol [Mass/Vol]194 mg/dLNormal<=200The [facility] Comment on above:Performed By: #### DATIMERTMary, DATBMP #### [facility] [address] [address] [address] Mariana StaffordCholesterol in HDL [Mass/Vol]42 mg/yXDaalzm36-45Dpy [facility]bleCompine rest [facility] on above:Performed By: #### DATVITD, DATBMP #### [facility] [address] [address] [address] Mariana StaffordCholesterol in LDL [Mass/Vol]139.6 mg/dLNormalThe [facility] PrebleComment on above:Performed By: #### DATIMERTMary DATBMP #### [facility] [address] [place] [address] Dr. Mariana StaffordCO2 [Moles/Vol]29.5 mmol/ZIpxrqz31.0-32.0[facility] Comment on above:Performed By: #### DATIMERTMary DATBMP #### [facility] [address] [place] [address] Dr. Mariana StaffordCreatinine [Mass/Vol]0.87 mg/dLNormal0.55-1.02[facility] CampusComment on above:Performed By: #### MARALTMary DATBMP #### [facility] [address] [place] [address] Dr. Mariana FelipeGFR-AF [place]IZ[place]>60Normal>=60The [facility] PrebleComment on above:Performed By: #### DATVITMary DATBMP #### [facility] [address] [place] [address] Dr. Mariana FelipeGFR-NON AF [place]IZ[place]>60Normal>=60The [facility] PrebleComment on above:Performed By: #### DATVITD, DATBMP #### [facility] [address] [place] [address] Dr. Mariana StaffordGlucose [Mass/Vol]92 mg/oPVrljzh64-041Gcz [facility] Comment on above:Performed By: #### DATVITD, DATBMP #### [facility] [address] [address] [address] Mariana Moreau NORMAL> or = 60 mg/dl - LOW CARDIOVASCULAR RISK <40 mg/dl - HIGH CARDIOVASCULAR RISKUniversity Hospitals Geneva Medical CenterComment on above:Performed By: #### DATANDREA DATBMP #### [facility] [address] [address] [address] Mariana StaffordLDL CALC NORMALSEE BELOWNoWayne HospitalComment on above:Result Comment: <100 mg/dl OPTIMAL 100 - 129 mg/dl NEAR OR ABOVE OPTIMAL 130 - 159 mg/dl BORDERLINE HIGH 160 - 189 mg/dl HIGH >190 mg/dl VERY HIGH Performed By: #### FAITH DATBMP #### [facility] [address] [place] [address] Dr. Mariana StaffordPotassium [Moles/Vol]4.2 mmol/LNormal3.5-5.1The [facility] Comment on above:Performed By: #### FAITH DATBMP #### [facility] [address] [place] [address] Dr. Mariana StaffordSodium [Moles/Vol]141 mmol/YKajjqb015-388Xpk [facility] Comment on above:Performed By: #### FAITH DATBMP #### [facility] [address] [place] [address] Dr. Mariana StaffordTriglyceride [Mass/Vol]62 mg/dLNormal<=150The [facility] Comment on above:Performed By: #### FAITH DATBMP #### [facility] [address] [place] [address] Dr. Mariana StaffordUrea nitrogen [Mass/Vol]8.0 mg/dLNormal7.0-18.0The [facility] PrebleComment on above:Performed By: #### MARALTMary DATBMP #### [facility] [address] [place] [address] Dr. Mariana StaffordUrea nitrogen/Creatinine [Mass ratio]9.2 mg/mgNoWayne HospitalComment on above:Performed By: #### DATVITD, DATBMP #### [facility] [address] [place] [address] Dr. Mariana StaffordVLDL CALC12.4 mg/dLNormalThUniversity Hospitals Geneva Medical CenterComment on above: Performed By: #### DATVITD, DATBMP #### [facility] [address] [place] [address] Dr. Mariana Pryor AUTO DIFFon [id number] #0.1 103/ulNormal0.0-0.1The [facility] PrebleComment on above:Performed By: #### DATCBC #### [facility] [address] [place] [address] Dr. Mariana StaffordBasophils/100 WBC (Bld)0.8 %Normal0.2-2.0[facility] Comment on above:Performed By: #### DATCBC #### [facility] [address] [place] [address] Dr. Mariana Gloria #0.1 103/ulNormal0.0-0.7The [facility] PrebleComment on above: Performed By: #### DATCBC #### [facility] [address] [place] [address] Dr. Mariana Felipeosinophils/100 WBC (Bld)1.8 %Normal0.9-7.0[facility] Comment on above:Performed By: #### DATCBC #### [facility] [address] [place] [address] Dr. Mariana Feliperythrocyte distribution width (RBC) [Ratio]12.7 %Zzvbbi79.0-15.0 The [facility] PrebleComment on above:Performed By: #### DATCBC #### [facility] [address] [place] [address] Dr. Mariana StaffordHematocrit (Bld) [Volume fraction]41.9 %Hiwlxa43.0-48.0[facility] CampusComment on above:Performed By: #### DATCBC #### [facility] [address] [place] [address] Dr. Mariana StaffordHemoglobin (Bld) [Mass/Vol]13.5 g/hLAwbqdh70.0-16.0The [facility] PrebleComment on above:Performed By: #### DATCBC #### [facility] [address] [place] [address] Dr. Mariana Reed #0.03 10e3/ulNormal0.00-0.03The [facility] PrebleComment on above:Performed By: #### DATCBC #### [facility] [address] [place] [address] Dr. Mariana Reed %0.4 %Normal0.0-0.5The [facility] PrebleComment on above: Performed By: #### DATCBC #### [facility] [address] [place] [address] Dr. Mariana Salinas #2.5 103/ulNormal1.2-3.8The [facility] PrebleComment on above:Performed By: #### DATCBC #### [facility] [address] [place] [address] Dr. Mariana Dennisonhocytes/100 WBC (Bld)33.1 %Kfyqwx06.5-60.0The [facility]bleCompine rest [facility] services on above:Performed By: #### DATCBC #### [facility] [address] [place] [address] Dr. Mariana Mcrae (RBC) [Entitic mass]28.9 nnKbmadt01.7-34.0The [facility] PrebleComment on above:Performed By: #### DATCBC #### [facility] [address] [place] [address] Dr. Mariana Mcrae (RBC) [Mass/Vol]32.2 g/sIYayosv84.9-35.2The [facility] PrebleComment on above:Performed By: #### DATCBC #### [facility] [address] [place] [address] Dr. Mariana Mcrae (RBC) [Entitic vol]89.7 wIKwinjx80.0-99.0The [facility]ining HospitalComment on above:Performed By: #### DATCBC #### [facility] [address] [place] [address] Dr. Mariana Duran #0.8 103/ulNormal0.3-0.8The [facility] PrebleComment on above:Performed By: #### DATCBC #### [facility] [address] [place] [address] Dr. Mariana Gaticaocytes/100 WBC (Bld)10.5 %Normal1.7-12.0The [facility] Comment on above:Performed By: #### DATCBC #### [facility] [address] [place] [address] Dr. Mariana Gifford #4.1 103/ulNormal1.4-6.5The [facility] PrebleComment on above:Performed By: #### DATCBC #### [facility] [address] [place] [address] Dr. Mariana Revelesutrophils/100 WBC (Bld)53.4 %Vfbafx48.0-75.0The [facility] PrebleComment on above:Performed By: #### DATCBC #### [facility] [address] [place] [address] Dr. Mariana Serna mean volume (Bld) [Entitic vol]8.6 fLCritically low 9.5-13.5The [facility] PrebleComment on above:Performed By: #### DATCBC #### [facility] [address] [place] [address] Dr. Mariana FairchildT420 103/flEenjgl933-397Icq [facility] PrebleComment on above: Performed By: #### DATCBC #### [facility] [address] [place] [address] Dr. Mariana MaldonadoC4.67 106/ulNormal4.20-5.40The [facility] PrebleComment on above:Performed By: #### DATCBC #### [facility] [address] [place] [address] Dr. Mariana StaffordWBC7.7 103/ulNormal4.0-11.0The [facility] PrebleComment on above: Performed By: #### DATCBC #### [facility] [address] [place] [address] Dr. Mariana Rosen - VITAMIN Don 24-29-2535MLD D 25-OH17.6 ng/mLNormalSumma Health Akron CampusComment on above:Performed By: #### MELYBMMELY AvilaVITD #### [facility] [address] [place] [address] Dr. Mariana Hernandez [facility]xner Medical CenterComment on above: Result Comment: <20 ng/mL Vit D deficient 20 - <30 ng/mL Vit D insufficient 30 - 100 ng/mL Vit D sufficient >100 ng/mL Potential ToxicityPerformed By: #### MELY ARAGONVITD #### [facility] [address] [place] [address] Dr. Mariana Rosen- BMP WITH LIPIDon 49-46-1673Achhu gap [Moles/Vol]9.4 mmol/L NormalSumma Health Akron CampusComment on above:Performed By: #### MELY ARAGONVITD #### [facility] [address] [place] [address] Dr. Mariana StaffordCalcium [Mass/Vol]8.7 mg/dLNormal8.5-10.1[facility] Comment on above:Performed By: #### DATBMAustin DATVITD #### [facility] [address] [place] [address] Dr. Mariana StaffordChloride [Moles/Vol]98 mmol/PXkufaa98-498OcxSumma Health [facility] Campus Comment on above:Performed By: #### MELYBMAustin DATVITD #### [facility] [address] [place] [address] Dr. Mariana SatffordCholesterol [Mass/Vol]158 mg/dLNormal<=200The [facility] Comment on above:Performed By: #### DATBMAustin DATVITD #### [facility] [address] [address] [address] Mariana StaffordCholesterol in HDL [Mass/Vol]29 mg/dLCritically zag45-35Hau [facility] PrebleComment on above:Performed By: #### DATBMP, DATVITD #### [facility] [address] [address] [address] Mariana StaffordCholesterol in LDL [Mass/Vol]115.8 mg/dLNormalThe [facility] PrebleComment on above:Performed By: #### DATBMP, DATVITD #### [facility] [address] [address] [address] Mariana StaffordCO2 [Moles/Vol]28.3 mmol/XOvxush10.0-32.0The [facility] Comment on above:Performed By: #### DATBMP, DATVITD #### [facility] [address] [place] [address] Dr. Mariana StaffordCreatinine [Mass/Vol]1.05 mg/dLCritically high0.55-1.02The [facility] PrebleComment on above:Performed By: #### DATBMP, DATVITD #### [facility] [address] [address] [address] Mariana Lindsay-AF [place] CITIZEN>60Normal>=60The [facility] PrebleComment on above:Performed By: #### DATBMP, DATVITD #### [facility] [address] [address] [address] Mariana FelipeGFR-NON AF YOJFHJRD96 mL/min/1.07e6Ezuamwvcqi low>=60The [facility] PrebleComment on above:Performed By: #### DATBMP, DATVITD #### [facility] [address] [address] [address] Mariana StaffordGlucose [Mass/Vol]84 mg/cJImxqlj16-320VfeSumma Health [facility] Campus Comment on above:Performed By: #### DATBMP, DATVITD #### [facility] [address] [address] [address] Mariana MahanL NORMAL> or = 60 mg/dl - LOW CARDIOVASCULAR RISK <40 mg/dl - HIGH CARDIOVASCULAR RISKUniversity Hospitals Geneva Medical CenterComment on above:Performed By: #### DATBMAustin DATVITD #### [facility] [address] [place] [address] Dr. Mariana StaffordLDL CALC NORMALSEE BELOWUniversity Hospitals Geneva Medical CenterComment on above:Result Comment: <100 mg/dl OPTIMAL 100 - 129 mg/dl NEAR OR ABOVE OPTIMAL 130 - 159 mg/dl BORDERLINE HIGH 160 - 189 mg/dl HIGH >190 mg/dl VERY HIGH Performed By: #### DATBMAustin DATVITD #### [facility] [address] [address] [address] Mariana StaffordPotassium [Moles/Vol]3.7 mmol/LNormal3.5-5.1The [facility] Comment on above:Performed By: #### DATBMAustin DATVITD #### [facility] [address] [place] [address] Dr. Mariana StaffordSodium [Moles/Vol]132 mmol/LCritically ykg969-226MyjSumma Health Akron CampusComment on above:Performed By: #### MAHESH DATVITD #### [facility] [address] [place] [address] Dr. Mariana StaffordTriglyceride [Mass/Vol]66 mg/dLNormal<=150The [facility] Comment on above:Performed By: #### DATBMAustin DATVITD #### [facility] [address] [place] [address] Dr. Mariana StaffordUrea nitrogen [Mass/Vol]12.0 mg/dLNormal7.0-18.0The [facility] PrebleComment on above:Performed By: #### DATBMP DATVITD #### [facility] [address] [place] [address] Dr. Mariana StaffordUrea nitrogen/Creatinine [Mass ratio]11.4 mg/mgNoWayne HospitalComment on above:Performed By: #### DATBMAustin DATVITD #### [facility] [address] [address] [address] Mariana StaffordVLDL CALC13.2 mg/dLNoWayne HospitalComment on above: Performed By: #### DATBMP, DATVITD #### [facility] [address] [address] [address] 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 However, the narrative phrase printed from the coding software may appear abbreviated, or result in slightly different terminology. Coded By: Karen Moss Date Saved: 04/22/2018 01:49 pmNAvita Health SystemMain OR Intraoperative Recordon [id number] OR Intraoperative RecordIntraOp Document Type FTURO Summary Primary Physician: Eugene Joshua MD Finalized Date/Time: 04/21/18 11:27:15 Pt. Name: DANA AVELAR/Sex: 1960 Female Med Rec #: [id number] Physician: Eugene Joshua MD Financial #: [id number] Pt. Type: O Room/Bed: / Admit/Disch: 04/21/18 10:13:51 - Institution: Case Times FTURO Entry 1 Patient Times In Room 04/21/18 11:05:00 Out Room 04/21/18 11:32:00 Procedure Times Start 04/21/18 11:12:00 Stop 04/21/18 11:26:00 Anesthesia Times Last Modified By: LATANYA Menjivar RN, Laura 04/21/18 11:26:51 Case Attendance FTURO Entry 1 Entry 2 Entry 3 Case Attendee Tres COBB, Eugene Menjivar RN, CNOR, Kalen OWEN, Yany Sanchez Role Performed Surgeon - Primary Event Marketing Specialist - Primary Scrub - Primary Time In 04/21/18 11:05:00 04/21/18 11:05:00 04/21/18 11:05:00 Time Out 04/21/18 11:32:00 04/21/18 11:32:00 04/21/18 11:32:00 Procedure CYSTOSCOPY LOCAL WITH CYSTOSCOPY LOCAL WITH CYSTOSCOPY LOCAL WITH URETHRAL DILATION(.) URETHRAL DILATION(.) URETHRAL DILATION(.) Comments Last Modified By: Tiara KUMAR, DANIELOR, Tiara KUMAR, DANIELOR, Tiara KUMAR, LATANYA, Laura 04/21/18 Laura 04/21/18 Laura 04/21/18 11:26:53 11:26:53 11:26:53 Surgical Procedures FTURO Entry 1 Procedure Description Procedure CYSTOSCOPY LOCAL WITH Modifiers . URETHRAL DILATION Surgeon Description CYSTOSCOPY WITH URETHRAL DILATION Primary Procedure Yes Primary Surgeon Tres COBB, Eugene Bangura 04/21/18 11:12:00 Stop 04/21/18 11:26:00 Anesthesia Type Local Surgical Service Urology Wound Class 2 - Clean-Contaminated Last Modified By: LATANYA Menjivar RN, Ruthann 04/21/18 11:27:11 General Case Data FTURO Pre-Care Text: Classifies surgical wound, implements aseptic technique, initiates traffic control Entry 1 Case Information OR URO 1 FT Case Level None Wound Class 2 - Clean-Contaminated Specialty Urology Preop Diagnosis LOW BACK PAIN, Postop Same As Preop No HEMATURIA, FREQUENCY , URGENCY AND NOCTURIA Postop Diagnosis urethral stricture Outcomes Met? Yes Last Modified By: LATANYA Menjivar RN, Ruthann 04/21/18 11:13:26 Post-Care Text: The patient is free from signs and symptoms of infection EU IntraOp - FTURO Pre-Care Text: Implements protective measures prior to operative or invasive procedure, confirms identity before the operative or invasive procedure, verifies operative procedure, surgical site, and laterality Entry 1 EU Perioperative Protocols Procedure(s) CYSTOSCOPY LOCAL WITH Patient Identity Birthday, ID Band URETHRAL DILATION(.) Verified (select at Check, Patient least 2): Participation Consents / H and P HandP, Surgery/Procedure Operative Site N/A Verified Consent Marking Verified Surgical Site No Laterality Verified Yes Verified Procedure Verified Yes Correct Patient Yes Position Verified Availability Equipment, Medication Time Out LATANYA Menjivar RN, Verified (If Participants Tres Sanchez MD, Applicable) Eugene Cuba, Kalen GANTRY CRANE OPERATOR, Yany Time Out Complete 04/21/18 11:11:00 Allergies Reviewed? Yes Allergies Reviewed Self/Patient With Body Position Frog Legged Prep Area perineal area Prep Agents Betadine Solution Skin. Condition Unable to Visualize Additional None Specimens Collected Vitals - EU Blood Pressure 165/100 Pulse Respirations SPO2 Blood Pressure Pulse 73 Respirations SPO2 EBL 0 IandO - EU Total Intake 0 mL Total Output 0 mL Outcomes Met? Yes Last Modified By: LATANYA Menjivar RN, Ruthann 04/21/18 11:12:11 Post-Care Text: The patient is free from signs and symptoms of injury caused by extraneous objects General Comments: dr aware of b/p Case Comments Finalized By: LATANYA Menjivar RN, Ruthann Document Signatures Signed By: LATANYA Menjivar RN, Ruthann 04/21/18 11:27NoAk[facility] Preoperative Recordon 70-79-3360Skiv OR Preoperative RecordHolding Area Document Type FTURO Summary Primary Physician: Eugene Joshua MD Finalized Date/Time: 04/21/18 11:10:59 Pt. Name: DANA AVELAR/Sex: 1960 Female Med Rec #: [id number] Physician: Eugene Joshua MD Financial #: [id number] Pt. Type: O Room/Bed: / Admit/Disch: 04/21/18 10:13:51 - Institution: Case Times Holding FTURO Pre-Care Text: Verifies consent for planned procedure, identifies individual values and wishes concerning care, includes family members in perioperative teaching Secures patient's records' belongings, and valuables, maintains patient's dignity and privacy, and maintains patient confidentiality Entry 1 In Holding 04/21/18 10:33:00 Outcomes Met? Yes Last Modified By: Cherry Lopez LPN 04/21/18 10:33:37 Post-Care Text: The patient participates in decisions affecting his or her perioperative plan of care The patient'sright to privacy is maintained Surgery Checklist FTURO Entry 1 Patient Birthday, ID Band Procedure History and Physical, Identification: Check, Patient Verification: Surgical Consent, With Participation Patient Personal Items: Jewelry Personal Items rings x 2, earrings Comment: Complaints of Pain: Yes Pain Comment: right back 10/21 Skin Integrity Intact, [place], Warm, & Dry Vitals - EU Blood Pressure 172/110 Pulse 73 bpm Respirations 18 br/min SPO2 RN Reviewed Yes Last Modified By: LATANYA Menjivar RN, Ruthann 04/21/18 11:10:57 Finalized By: LATANYA Menjivar RN, Ruthann Document Signatures Signed By: Cherry Lopez LPN 04/21/18 10:42 LATANYA Menjivar RN, Ruthann 04/21/18 11:10[facility] Operative Reporton [id number] ReportPatient: DANA AVELAR Age: 57 years Sex: Female : 1960 Associated Diagnoses: None Author: Eugene Joshua MD Procedure Operative Information Details: Date/ Time: 04/21/18 11:29:00. Pre-Op Dx: Micro Hematuria - Asymptomatic - R31.21, Frequency - R35.0, Urgency - R39.15, Nocturia -R35.1, Hx of UTI's - Z87.440, Urethral Stricture - Other Post Infective Female - N35.12. Post-Op Dx: Same. Anesthesia Type: Local. Procedure: Local Cystoscopy with Urethral Dilation. Complications: None. Risks/Benefits/Informed Consent: Surgical risks, benefits, details of the procedure have been explained to the patient, Full informed consent has been obtained. Intraoperative Information Prepped: Patient is brought back to the endoscopy suite, Patient is placed in modified dorso/lithotomy position, Patient prepped in the usual fashion with Betadine solution, 2% Xylocaine Jelly is placed per Urethra, After waiting several minutes the Cystoscope is introduced. The Urethra is: Tight, very inflammed friable urethra...bled from dilation.. The Bladder is: Normal, Trabeculated no b.t., no tracie, or prolapse. mod a.v.. The ureteral orifices: Show efflux of clear urine. The Urethra was dilated to: 30 Slovak w/ sounds. Devices Implanted: None. Removal: Cystoscope is removed, The patient tolerated it well. Postoperative Information Discharge: Patient is discharged home with antibiotic coverage, Follow up arranged.[facility] HospitalComment on above:Result Comment: Electronically Signed By: Tres COBB, Eugene Forrester.br\Date and Time Signed: 04/21/18 11:33 EDT Vital Signs Date TimeVital SignValuePerforming YzirhxymiWjzcevct88-83-6173 09:06-0400Body .1 cmDO Chris Singleton Work Phone: [phone]04-19-2024 09:06-0400 Body mass index (BMI) [Ratio]30.2 kg/m2DO Chris Singleton Work Phone: [phone] [place], [place] 9835504-19-2024 09:06-0400 Body qframv96.55 kgDO Chris Singleton Work Phone: [phone]04-19-2024 09:06-0400 Diastolic blood olhdinwb165 mm[Hg]DO Chris Singleton Work Phone: [phone] [place], [place] 9835504-19-2024 09:06-0400 Heart rate96 /minDO Chris Singleton Work Phone: [phone] [place], [place] 9835504-19-2024 09:06-0400 Systolic blood yskbnvfv283 mm[Hg]DO Chris Singleton Work Phone: [phone] [place], [place] 9835504-15-2024 13:41-0400 Body .1 cmDO Chris Singleton Work Phone: [phone] [place], [place] 9835504-15-2024 13:41-0400 Body mass index (BMI) [Ratio]30.3 kg/m2DO Chris Singleton Work Phone: [phone] [place], [place] 9835504-15-2024 13:41-0400 Body .72 kgDO Chris Singleton Work Phone: [facility]04-15-2024 13:41-0400 Diastolic blood kajpttjd21 mm[Hg]DO Chris Singleton Work Phone: [facility]04-15-2024 13:41-0400 Heart rate99 /minDO Chris Singleton Work Phone: [facility]04-15-2024 13:41-0400 Systolic blood mm[Hg]DO Chris Singleton Work Phone: [facility]12-22-2023 10:15-0500 Body rtxuoh699.1 cmZina Soto Other [employer] Other 12-22-2023 10:15-0500Body mass index (BMI) [Ratio] 29.12 kg/e4NcwjwfkdZina Soto Other [employer] Other 12-22-2023 10:15-0500Body .38 kgZina Soto Other [employer] Other 12-22-2023 10:15-0500Diastolic blood mm[Hg] Zina Soto Other [employer] Other 12-22-2023 10:15-9275CtP0% (BldA) [Mass fraction]100 % Zina Soto Other [employer] Other 12-22-2023 10:15-0500Systolic blood ojrbmlgs950 mm[Hg] Zina Soto Other [employer] Other 06-23-2023 10:15-0400Body .1 cmMarcia Onelia Other [employer] Other 06-23-2023 10:15-0400Body mass index (BMI) [Ratio] 30.78 kg/x1Pgsqsp Onelia Other [employer] Other 06-23-2023 10:15-0400Body khkalg82.92 kgVicki Onelia Other [employer] Other 06-23-2023 10:15-0400Diastolic blood lebstmlq03 mm[Hg] Vicki Rousseau Other [employer] Other 06-23-2023 10:15-7020JlG9% (BldA) [Mass fraction]96 % Vicki Rousseau Other [employer] Other 06-23-2023 10:15-0400Systolic blood afgkzsco476 mm[Hg] Vicki Rousseau Other [employer] Other 01-23-2023 12:00-0500Body .1 cmVicki Onelia Other [employer] Other 01-23-2023 12:00-0500Body mass index (BMI) [Ratio] 29.78 kg/v4Oeeixs Braun Other [employer] Other 01-23-2023 12:00-0500Body .19 kgVicki Onelia Other [employer] Other 01-23-2023 12:00-0500Diastolic blood ckitfefr008 mm[Hg]Vicki Rousseau Other [employer] Other 01-23-2023 12:00-3138KdM3% (BldA) [Mass fraction]97 % Vicki [facility] Other [facility] [employer] Other 01-23-2023 12:00-0500Systolic blood usktazhp451 mm[Hg] Vicki Rousseau Other [facility] [employer] Other Encounters Encounter DateEncounter TypeCare ProviderFacilityStart: 12-05-2023 End: 49-74-5962qxjouonttwPxthp [facility] Work Phone: Start: 12-05-2023 End: 16-61-4177Gbzbmrgo ReferredDO Chris Singleton Work Phone: [facility]: 10-31-2023 End: 77-33-3795Xfxmncf encounter procedureDO Chris Singleton Work Phone: [facility] Work Phone: Start: 10-27-2023 End: 75-96-1079Gsocvku encounter procedureDO Chris Singleton Work Phone: [facility] Work Phone: Start: 88-22-9202Dex-patient / Non-visitDO Chris Singleton Work Phone: [facility] [employer] Work Phone: Start: 07-31-2023 End: 61-31-8405tybzcpxucbUegioe Braun Other [facility] [employer] Other Start: 26-65-7131Pmxygzcaa encounterMarhenri RousseauMercy Health Clermont Hospitaltart: 07-04-2023 End: 96-61-5665cvakpauourAszezerm Rohrbacher Other [facility] [employer] Other Start: 50-75-8179Rqqowz outpatient visit 15 minutes [facility]res [facility] 07-[facility]2023 End: 02-82-9781apyhchyaxrYxhcyr Rousseau Other [employer] Other Start: 20-92-4917Lwifpwwjx encounterMarcia Wilber [facility]Start: 06-18-2023 End: 00-79-2711yttubfcjmsBauigg Rousseau Other [employer] Other Start: 92-74-2615Gztrpddvp encounterMarcia [facility]COP[facility]Start: 06-04-2023 End: 75-71-8866jdtbkwfyjkVlwvxf Rousseau Other [employer] Other Start: 61-70-1871Rpsttsqeg encounterMarcia Wilber [facility] ClinicStart: 05-15-2023 End: 00-59-5469kyzkhqyljvOvwlaw Rousseau Other [employer] Other Start: 39-37-8983Cabzbxjfz encounterMarcia OneliaCOP[facility] ClinicStart: 05-07-2023 End: 26-62-9005gvvsufgdxqCwxnbo Rousseau Other [employer] Other Start: 87-25-1775Fxvmimulu encounterMarcia Wilber [facility] ClinicStart: 04-24-2023 End: 10-03-2621edfnjkhzvhWsmokz Rousseau Other [employer] Other Start: 38-27-2004Obvuyjvda encounterMarcia Lorenzo [facility]Start: 04-10-2023 End: 61-28-0345zwwsennwblZsdemi Rousseau Other [employer] Other Start: 28-97-8830Rpelqikpp encounterMarcia Lorenzo [facility] ClinicStart: 03-12-2023 End: 34-90-0829tzsgdpgdwpAgdacv Rousseau Other [employer] Other Start: 53-15-7787Dslxcbmur encounterMarcia Lorenzo [facility] ClinicStart: 02-12-2023 End: 74-41-9250rhcydwafeuLdggoh Rousseau Other [employer] Other Start: 55-57-5976Dalpmjcpg encounterMarcia Lorenzo [facility] ClinicStart: 02-11-2023 End: 57-97-3341epaodvyuxzUofchu Rousseau Other [employer] Other Start: 36-89-6955Ptstoyohw encounterMarcia Lorenzo [facility] ClinicStart: 01-15-2023 End: 71-55-5454wzaplzdkllSblfde Rousseau Other [employer] Other Start: 32-32-0464Ulmzvwaue encounterMarcia Lorenzo [facility] ClinicStart: 01-06-2023 End: 03-01-0330ecafddnguvEtsdrf Rousseau Other [employer] Other Start: 75-04-6778Kvhfyjqhg encounterMarcia Lorenzo [facility] ClinicStart: 01-03-2023 End: 29-83-3636vruifpkcgvCfdfge Rousseau Other [employer] Other Start: 59-13-0957Kaenck outpatient visit 15 minutes Vicki [facility]Start: 12-18-2022 End: 08-57-2312tqgqlxnffaJxmqrz Rousseau Other [employer] Other Start: 18-00-1888Sesnvefyr encounterMarcia Lorenzo [facility] ClinicStart: 10-15-2022 End: 82-75-7831wyzxplchnvKdtauo Rousseau Other [employer] Other Start: 97-29-3956Zfhopcfnm encounterMarcia Lorenzo [facility] ClinicStart: 09-25-2022 End: 44-36-0627rqcmfyzrurReyreu Rousseau Other [employer] Other Start: 04-11-5459Etyhzulmj encounterMarcia Lorenzo [facility] ClinicStart: 09-23-2022 End: 98-87-6596fonxdwkvrmEO NONE LISTED REQUESTFacility:W2Vxjgl: 08-29-2022 End: 97-56-1227uvdlimcejePynnyz Rousseau Other [employer] Other Start: 20-57-1059Qfgwurygs encounterMarcia Lorenzo [facility] ClinicStart: 08-08-2022 End: 79-32-7933xmsrejuvehFynlyp Rousseau Other [employer] Other Start: 29-48-7317Mguzdtojg encounterMarcia Lorenzo [facility] ClinicStart: 08-05-2022 End: 30-37-0597xjojcldndpXkfmar Rousseau Other [employer] Other Start: 94-08-5228Zfzhec outpatient visit 10 minutes Vicki [facility] ClinicStart: 07-31-2022 End: 07-76-9845lgfyodfircNnzcku Rousseau Other [employer] Other Start: 12-97-9509Hbtnewshv encounterMarcia Lorenzo [facility] ClinicStart: 82-37-8178Dpdte health examinationMarcia Rousseau Other [employer] Other Start: 78-87-5041Zxchboany for general adult medical examination without abnormal findingsVicki Rousseau Other [employer] Other Start: 00-44-7519Pgrrrwjbjlqdn examination normal Vicki Rousseau Other [employer] Other Start: 12-17-2021 End: 13-03-7802dlrdslqgwdJD NONE LISTED REQUESTFacility:V5Xouhh: 04-21-2018 End: 19-03-7296Qxvkczw encounter procedurePatrick Bereket JoshuaFacility:[facility] Procedures DateProcedureProcedure DetailPerforming ClinicianScreening for malignant neoplasm of breastVicki Rousseau Other Payers DatePayer CategoryPayerPolicy [id number] [id number] [id number]-xlf [id number] 2..[id number] [id number] Social History DateTypeDetailFacilityUnknown if ever smokedCumberland Furnace [employer] Other Sex Assigned At BirthSex Assigned At [employer] Other Start: 58-70-0700Ufe Assigned At [facility] Clinical Notes 08-05-2022 to 07-31-2023 Note Date & WqviLyhyAxxvmzfl40-71-6542 Evaluation note* Encounter Date Diagnosis Assessment Notes Treatment Notes Treatment Clinical Notes Jul, Migraine with aura a nd with status migrainosus, not intractable (ICD-10 - G43.101) [employer] Other 12-22-2023 Evaluation note* Encounter Date Diagnosis Assessment Notes Treatment Notes Treatment Clinical Notes Jun, Contact allergic reaction (ICD-1 0 - L23.9) Findings consistent with allergic reaction to unknown source. Discussed possibility of contact withfood, drink, environmental exposure etc. Discussed role of steroids and treating this reaction in addition to an antihistamine such as blfx-adk-etofyqm Claritin or Zyrtec. Patient may take Benadryl at night for nighttime relief. Take medication as prescribed. Complete all doses of medication, even if sx are no longer present. Pt instructed to take medication with food. Informed pt that medicationmay make pt feel jittery, hungry and give you extra energy. Medication may also increase blood pressure and increase blood sugar. Pt also advised not to take NSAIDs while using steroids.Advised on side effects to be aware of with steroid treatment as well as signs and symptoms to report to the ER for including trouble breathing, wheezing, thick tongue, swollen lips, or other chest pain or respiratory issues. Patient verbalizes understanding and agrees with plan of care [employer] Other 12-20-2023 Evaluation note* Encounter Date Diagnosis Assessment Notes Treatment Notes Treatment Clinical Notes Jun, Migraine with aura a nd with status migrainosus, not intractable (ICD-10 - G43.101) [employer] Other 11-22-2023 Evaluation note* Encounter Date Diagnosis Assessment Notes Treatment Notes Treatment Clinical Notes May, Migraine with aura a nd with status migrainosus, not intractable (ICD-10 - G43.101) [employer] Other 11-02-2023 Evaluation note* Encounter Date Diagnosis Assessment Notes Treatment Notes Treatment Clinical Notes May, Migraine with aura a nd with status migrainosus, not intractable (ICD-10 - G43.101) [employer] Other 09-28-2023 Evaluation note* Encounter Date Diagnosis Assessment Notes Treatment Notes Treatment Clinical Notes Mar, Migraine with aura a nd with status migrainosus, not intractable (ICD-10 - G43.101) [employer] Other 08-30-2023 Evaluation note* Encounter Date Diagnosis Assessment Notes Treatment Notes Treatment Clinical Notes Feb, Migraine with aura a nd with status migrainosus, not intractable (ICD-10 - G43.101) [employer] Other 08-02-2023 Evaluation note* Encounter Date Diagnosis Assessment Notes Treatment Notes Treatment Clinical Notes Feb, Migraine with aura a nd with status migrainosus, not intractable (ICD-10 - G43.101) [employer] Other 08-01-2023 Evaluation note* Encounter Date Diagnosis Assessment Notes Treatment Notes Treatment Clinical Notes Feb, Vitamin D deficiency (ICD-10 - E 55.9) [employer] Other 07-05-2023 Evaluation note* Encounter Date Diagnosis Assessment Notes Treatment Notes Treatment Clinical Notes Jan, Migraine with aura a nd with status migrainosus, not intractable (ICD-10 - G43.101) [employer] Other 06-23-2023 Evaluation note* Encounter Date Diagnosis Assessment Notes Treatment Notes Treatment Clinical Notes Dec, Migraine with aura a nd with status migrainosus, not intractable (ICD-10 - G43.101) Reviewed [place] report. Pt states symptoms are controlled on present meds. Declines decreasing or d/c HRT. Pt would like to continue present rx's. [employer] Other 01-23-2023 Evaluation note* Encounter Date Diagnosis Assessment Notes Treatment Notes Treatment Clinical Notes Jul, Migraine with aura a nd with status migrainosus, not intractable (ICD-10 - G43.101) Medications reviewed last week reviewed OARRS report. Had patient's sign updated pain contract Jul,hronic fatigue (ICD-10 - R53.82)Patient will do labs through the [facility]. Jul,bnormal uterine bleeding (AUB) (ICD-10 - N93.9)Patient refuses to stop the norethindrone. Patient states her mother had periods well into her 60s and she needs to continue the medication. Is unable to afford hysterectomy. [employer] Other Evaluation noteNo InformationNort [employer] Other Evaluation noteNortI[employer] Other Evaluation note* Diagnosis Onset Date Resolution Status Anxiety acuteHeadache, migraineacuteAnxietyacuteHeadache, migraineacute [facility] Work Phone: History general Narrative - Reported* Type Description Date Medical History Diastolic blood pressure 90 mm H g or higher Medical HistoryBody mass index (BMI) of 30.0 to 30.9 in adultMedical History Migraine without aura and without status migrainosus, not intractableMedical HistoryAnxiety disorder, unspecified typeMedical HistoryAllergic conjunctivitis Medical HistoryFrequency-urgency syndromeMedical HistoryMenstrual migraine, intractable, without status migrainosusMedical HistoryAnemiaMedical HistoryAcute bronchitis due to other specified organismsSurgical HistoryMOHS SURGERY BREAST BIOPSYSurgical HistoryHYSTEROSCOPY D&CSurgical HistoryPERI-RECTALHospitalization HistorySEE SURGICAL HX [employer] Other History general Narrative - ReportedNouniversity of [place] [facility] care [employer] Other Summary Purpose Family History No Family History Records Found Relationship Condition Age at Onset Recorded Date/T uday father Unknown Not SpecifiedDeceasedUnknown Advance Directives No Advanced Directives Records Found Advance Directive Response Recorded Date/ Time Advance Directives No September 17 8:52am Chief Complaint and Reason for Visit Chief Complaint Amb Documentation medication check discussion Chronic fatigueReason for VisitAnxiety Headache, migraine Anxiety Headache, migraine Additional Source Comments INFORMATION SOURCE (unrecogn ized section and content) DATE CREATED AUTHOR 10/17/2018 [facility] DATE CREATED AUTHOR AUTHOR'S ORGANIZ ATION 09/24/2022 [facility] DATE CREATED AUTHOR AUTHOR'S ORGANIZ ATION 12/13/2023 [facility] REASON FOR VISIT (unrecogniz ed section and content) prescription refill3 month F ollow upprescriptionprescription refillRefillNo Informationrefillmedication refill (UNABLE TO LEAVE A MSSAGE FOR THE PATIENT TO RESCHEDULE)refillrefilllab recheckRefillrefilllab questionNo InformationRefillrefillrefillrefillsore throat, sinuses, eye puffy redrefill Care Teams (unrecognized sec tion and content) Team Status: Active Member Role Status Dates Vicki Rousseau MD Primary Care Provider Active Start: September 16, 2023 Cherry Laguna LPNAtjose ProviderActiveStart: September 16, 2023 Team Status: Inactive Member Role Status Dates Vicki Rousseau MD Primary Care Provide r, Attending Provider Active Start: October 27, 2023 End: October 27, 2023 Team Status: Inactive Member Role Status Dates Vicki Rousseau MD Primary Care Provide r, Attending Provider Active Start: October 31, 2023 End: October 31, 2023 Team Status: Inactive Member Role Status Dates Chris Singleton DO Attending Provider Active St art: December 05, 2023 End: December 05, 2023 Goals (unrecognized section and content) Goals may be documented in a n alternate section FOR RECORDS PERTAINING TO PATIENTS WHO ARE OR HAVE BEEN ENROLLED IN A CHEMICAL DEPENDENCY/SUBSTANCEABUSE PROGRAM, SOME INFORMATION MAY BE OMITTED. This clinical summary was aggregated from multiple sources. Caution should be exercised in using it in the provision of clinical care. This summary normalizes information from multiple sources, and as a consequence, information in this document may materially change the coding, format and clinical context of patient data. In addition, data may be omitted in some cases. CLINICAL DECISIONS SHOULD BE BASED ON THE PRIMARY CLINICAL RECORDS. [employer] provides no warranty or guarantee of the accuracy or completeness of information in this document.
--- OUTSIDE RECORDS SUMMARY | 2025-06-08 08:06 | XMS_ITS | Patient Health Record ---
Author Organization [facility] es Address [address] [place] [address] Care Team Providers Care Section Gang Name Role Phone Chris Singleton Primary Care Provider Zina Farris [phone] Allergies Allergen (clinical drug ingredient) Drug/Non Drug Allergy documented on EMR Reaction Allergy Type Onset Date Status sulfamethoxazole / trimethoprim Bactrim stomach upset D rug Allergy ActivefluconazoleDiflucanstomach upsetDrug AllergyActive Reason For Referral Reason REFERRAL RECEIVED; P ENDING PT CALL mornign headaches, daytime fatigue, unsure on snoring or apneic spells Diagnosis 1 Suspected sleep apne a (R29.818) Referral Organization [facility] Referring Provider First Name Chris Referring Provider Last Name Mani Referring Provider Speciality [facility] ctice Referred Provider [facility], . Referred Provider Specialty Sleep Medici ne Referral Priority Routine Medications Medication SIG (Take, Route, Frequency, Duration) Notes Start Date End Date Status LORazepam 0.5 MG Tablet take 1 tablet by mouth three times a day if needed for anxiety Oral; Duration: 30 Days 5ActiveamLODIPine Besylate 5 MG Tablet1 tablet Orally Once a day; Duration: 90 days5ActiveNorethindrone Acetate 5 MG Tablettake 1 tablet by mouth twice a day Oral; Duration: 30 daysNot-Taking/PRNLORazepam 0.5 MG Tablettake 1 tablet by mouth three times a day if needed for anxiety Oral; Duration: 30 days5ActivemethylPREDNISolone 4 MG Tablet Therapy Packuse as directed FOLLOW DIRECTIONS ON BACK OF FOIL PACK Oral; Duration: 6 Days Not-Taking/PRNHYDROcodone-Acetaminophen 5-325 MG Tablet take 1 tablet Orally every 6 hrs; Duration: 30 days As needed for pain 5Active Social History Tobacco Use: Social History Observation Description Date Details (start date - stop date) Never Smoker NA - NA Social History GeneralSocial InfoQuestionAnswerNotesDepression Screening (PHQ-9):Little interest or pleasure in doing thingsNot at allFeeling down, depressed, or hopelessMore than half the daysTrouble falling or staying asleep, or sleeping too muchNearly every dayFeeling tired or having little energyNearly every day Poor appetite or overeatingNearly every dayFeeling bad about yourself-or that you are a failure or have let yourself or your family downMore than half the daysTrouble concentrating on things, such as reading the newspaper or watching televisionNot at allMoving or speaking so slowly that other people could have noticed. Or the opposite being so fidgetyor restless that you have been moving around a lot more than usualNot at allThoughts that you would be better off , or of hurting yourself in some wayNot at allTotal Zvmai08Rklkqbkymownz Moderate DepressionSubstance abuse/mental health issues of patient/familyPatient -DeniesAbility to understand healthcare/treatmentPatient:GoodSocial/Support Concerns:Patient:NoBehaviors affecting healthPoor/Risky Behaviors:Denies- Communication Barrier:Language Barrier?:Not NeededDrug/Alcohol:Social Info QuestionAnswerNotesAUDIT-C (Standard)Did you have a drink containing alcohol in the past year?UzEqsrxn3XygflfttjxvwnlGfpkpvgbGyimdmj Use:Social InfoQuestion AnswerNotesTobacco Control (Standard)Tobacco use:Nonsmoker Problems Problem Type SNOMED Code ICD Code Onset Dates Problem Status W/U Status Risk Notes Problem Anxiety (70514728) Anxiety (F41.9) ActiveconfirmedProblemEssential hypertension (69715958)Essential hypertension (I10)ActiveconfirmedProblemChronic pain (94625337)Other chronic pain (G89.29) ActiveconfirmedProblemChronic fatigue syndrome (24281946)Chronic fatigue (R53.82)ActiveconfirmedProblemVitamin D deficiency (21964532)Vitamin D insufficiency (E55.9)ActiveconfirmedProblemAdenomyosis of uterus (disorder) (826952576)Adenomyosis (N80.03)Activeconfirmed Vital Signs Heart Rate 82 /min 03/09/2025 Gathwonotyu73.0 degrees Rlackxwulc80/06/2025Respiratory Rate20 /min03/09/2025 Pqckkxxt74 %03/09/2025lood pressure cibpczmnf66 mm Hg03/09/20254996Ajkhez06 in 03/09/2025lood pressure mm Hg03/09/20252933Szszyf118 lbs03/09/2025MI 33.73 kg/m203/09/2025 Encounters Encounter Location Date Provider Diagnosis [facility] [address] [place] [address] 06/24/2024 Chris Singleton Adenomyosis N80.03 [facility] [address] [place] [address] 06/30/2024 Chris Singleton Essential hypertensi on I10 and Anxiety F41.9 [facility] [address] [place] [address] 07/26/2024 Chris Sinlgeton [facility] [place] [address] Chris [facility] [place] [address]/vahe [facility]letonKing[facility] F41.9[facility] [place] [address]/[facility] [place] [address]/arodaniel SingletonOther chronic pain G89.29[facility] [place] [address]/arodaniel SingletonKing[facility] F41.9[facility] [place] [address]/vahe [facility] [place] [address]/5Aaron MartinezAnxiety F41.9 and Essential hypertension F50KytekxH[facility] [place] [address]/5Aaron MartinezOther chronic pain G89.29[facility] [address] [place] [address]/08/2024Dinorajayden Farris Other chronic pain G89.29[facility] [place] [address] 5Aaron MartinezAnxiety F41.9[facility] [place] [address]/aron MartinezOther chronic pain G89.29[facility] [place] [address]/5Aaron MartinezOther chronic pain G89.29[facility] [place] [address]/aron MartinezOther chronic pain G89.29 and Anxiety F41.9[facility] [address] [place] [address] 5Aaron MartinezOther chronic pain G89.29[facility] [place] [address]/aron MartinezPain in right knee M25.561 ; Pain in left knee M25.562 ; Other chronic pain G89.29 and Adenomyosis N80.03[facility] [place] [address]/5Aaron Mani Essential hypertension I10 ; Vitamin D insufficiency E55.9 ; Other chronic pain G89.29 and Suspected sleep apnea R29.818[facility] [place] [address]/5Aaron MartinezAnxiety F41.9 ; Essential hypertension I10 and Other chronic pain G89.29[facility] [place] [address]/aron MartinezEssential hypertension I10 and Other chronic pain G89.[address] [address]/aron MartinezAnxiety F41.9 ; Essential hypertension I10 and Other chronic pain G89.29 Assessments Encounter Date Diagnosis (ICD Code) Assessment Notes Treatment Notes Treatment Clinical Notes Section Notes 06/24/2024 Adenomyosis (ICD-10 - N80.03) 06/30/2024Essential hypertension (ICD-10 - I10)07/26/2024Pain in right knee (ICD-10 - M25.561)Patient with persistent pain in right knee following fall back in March. She had initial x-raysthat were negative. She does have a case as under review with pending potential approval for physical therapy. I do feel that physical therapy with the best course of action going forward. Will start prednisone taper at this time. RICE therapy otherwise ztxyoahzu89/13/2025Pain in left knee (ICD-10 - M25.562)08/17/2024nxiety (ICD-10 - F41.9)08/23/2024 Essential hypertension (ICD-10 - I10)Patient with minimal change in her blood pressure with the increased dose of lisinopril. We did discuss switching to amlodipine at this time. Do not believe that her morning headaches and fatigue arerelated to her blood pressure medication. More suspicious for potential sleep apnea. We did discussreferral for sleep testing at this time. Will also check vitamin D levels.08/23/2024Vitamin D insufficiency (ICD-10 - E55.9)09/20/2024 Anxiety (ICD-10 - F41.9)09/20/2024Essential hypertension (ICD-10 - I10)Blood pressure borderline but improved from previous with change to amlodipine. We did discuss increase on dose and plan to reevaluate at follow-up. Patient currently asymptomatic.Signs and symptoms that warrant return to clinic were discussed. Signs and symptoms that would warrant going to the nearest ER or calling 911 were also discussed.10/18/2024Other chronic pain (ICD-10 - G89.29)10/25/2024 Anxiety (ICD-10 - F41.9)11/16/2024Essential hypertension (ICD-10 - I10)BP controlled on current regimen, and patient is currently tolerating meds well. We will continue current therapy. Discussed exercise, salt intake, weight as other means of BP control.12/10/2024nxiety (ICD-10 - F41.9)12/14/2024Other chronic pain (ICD-10 - G89.29)01/12/2025Other chronic pain (ICD-10 - G89.29)01/24/2025 Anxiety (ICD-10 - F41.9)02/10/2025Other chronic pain (ICD-10 - G89.29)03/09/2025 Anxiety (ICD-10 - F41.9)03/09/2025Essential hypertension (ICD-10 - I10)BP controlled on current regimen, and patient is currently tolerating meds well. We will continue current therapy. Discussed exercise, salt intake, weight as other means of BP control.04/08/2025Other chronic pain (ICD-10 - G89.29)05/09/2025 Other chronic pain (ICD-10 - G89.29)06/06/2025Other chronic pain (ICD-10 - G89.29)05/09/2025nxiety (ICD-10 - F41.9)03/09/2025Other chronic pain (ICD-10 - G89.29)12/10/2024Essential hypertension (ICD-10 - I10)11/16/2024Other chronic pain (ICD-10 - G89.29)09/20/2024Other chronic pain (ICD-10 - G89.29)08/23/2024 Other chronic pain (ICD-10 - G89.29)07/26/2024Other chronic pain (ICD-10 - G89.29)4Anxiety (ICD-10 - F41.9)07/26/2024denomyosis (ICD-10 - N80.03) 08/23/2024Suspected sleep apnea (ICD-10 - R29.818)07/26/2024OtherBody Mass Index: Care Instructions material was scmxsqozy58/10/2025OtherBody Mass Index: Care Instructions material was published, Body Mass Index: Care Instructions material was kxrfwfm7909/20/2024OtherBody Mass Index: Care Instructions material was published, Body Mass Index: Care Instructions material was ppubuop0711/16/2024 OtherBody Mass Index: Care Instructions material was published, Body Mass Index: Care Instructions material was printed Plan Of Treatment Pending Test Test Name Order Date Basic Metabolic Panel 01/05/2024 Vitamin D 25 Hydroxy 08/23/2024 Next Appt Details Provider Name:Chris mercedes, 06/13/2025 08:30:00 AM, [address] [place], [address], Medical (General) History Medical History History ICD Code migraine headache anxietySurgical History Surgery Date(Month/Year) multiple hysteroscopies Hospitalization History Reason Date(Month/Year) see surgical
[2025-06-08 08:07] LABS: SARS-CoV-2 Ag NEGATIVE (NEGATIVE)
== END 2025-06-08 08:26 | disposition home or self-care (01) ==
PROVIDERS: Emergency Provider Emergency Medicine; PCP Student in an Organized Health Care Education/Training Program
DX: J06.9 Acute upper respiratory infection, unspecified (principal)
CPT/HCPCS: 87804; 87811; 99283